=== PATIENT | female | born 1940 | race Caucasian/White ===

== ENCOUNTER 2020-09-06 13:24 | Inpatient (IN) ==
[2020-09-06] MEDS ORDERED: Furosemide 40 MG/4 ML VIAL IVP ONE (13:40)
[2020-09-06 14:16] LABS: Eosinophils % 5.6 %; Hemoglobin 11.2 g/dL (11.5-15.4); Mean Corpuscular Volume 90.3 fL (83.0-100.0); Red Cell Distribution Width 14.8 % (11.5-14.5)
[2020-09-06 14:18] LABS: Basophils # 0.1 K/mcL (0.0-0.2); Basophils % 1.2 %; Eosinophils # 0.3 K/mcL (0.0-0.6); Hematocrit 35.4 % (35.3-44.9); Immature Granulocytes % 0.2 % (0-4); Immature Platelets 15.2 % (1.1-6.1); Lymphocytes # 1.3 K/mcL (0.6-4.6); Lymphocytes % 26.7 %; Mean Corpuscular HGB Conc 31.6 g/dL (31.6-35.5); Mean Corpuscular Hemoglobin 28.6 pg (28.0-33.3); Mean Platelet Volume 12.4 fL (9.4-12.4); Monocytes # 0.8 K/mcL (0.0-1.3); Monocytes % 17.1 %; Neutrophils # 2.4 K/mcL (1.6-8.9); Platelet Count 155 K/mcL (140-400); Red Blood Count 3.92 M/mcL (3.82-4.97); Segmented Neutrophils % 49.2 %; White Blood Count 4.9 K/mcL (4.3-11.1)
[2020-09-06 14:41] LABS: BUN/Creatinine Ratio 15 (6-26); Blood Urea Nitrogen 14 mg/dL (8-23); Calcium 9.3 mg/dL (8.6-10.3); Carbon Dioxide 33 mEq/L (23-29); Chloride 98 mEq/L (98-107); Glucose 119 mg/dL (70-105); Osmolality,Calculated 286 (280-300); Potassium 3.6 mEq/L (3.5-5.1); Sodium 137 mEq/L (136-145); Troponin I < 0.03 ng/mL (< 0.04); eGFR For African Americans > 60 (> 60); eGFR For Non-African Americans 58 (> 60)
[2020-09-06 14:51] LABS: Activated Partial Thrombo Time 27.8 Seconds (26.0-36.0)
[2020-09-06] MEDS ORDERED: Naloxone 0.4 MG/ML INJ IVP PRN (16:59)
[2020-09-06] MEDS ORDERED: Melatonin 3 MG TABLET PO PRN ×2 (16:59→17:09)
[2020-09-06] MEDS ORDERED: Ondansetron 4 MG/2 ML VIAL IVP PRN (16:59)
[2020-09-06] MEDS ORDERED: D5% in Water 1,000 ML IVC PRN (17:10)
[2020-09-06] MEDS ORDERED: *HR* Dextrose 50 % in Water (Vial) 50 ML VIAL IVP PRN (17:10)
[2020-09-06] MEDS ORDERED: Dextrose Gel 15 GM/37.5 ML TUBE PO PRN ×2 (17:10)
[2020-09-06] MEDS ORDERED: Perflutren Lipid Microsphere 1.3 ML in 0.9 % Sodium Chloride 8.7 ML IVP PRN (17:10)
[2020-09-06] MEDS ORDERED: Ipratropium/Albuterol Neb 3 ML IH PRN (17:57)
[2020-09-06 20:06] LABS: Estimated Average Glucose 160 mg/dl; Hemoglobin A1C 7.2 %
[2020-09-06] MEDS: Pregabalin 75 MG CAPSULE PO SCH (20:08)
[2020-09-06] MEDS: Insulin DETEMIR 100 UNIT/ML X5UNITS SUBQ SCH (20:10)
[2020-09-06] MEDS: *HR* Enoxaparin 40 MG/0.4 ML SYRINGE SQ SCH (20:10)
[2020-09-06] MEDS: Insulin LISPRO 300 UNITS/3 ML VIAL SUBQ SCH (20:12)
[2020-09-06] MEDS: predniSONE 20 MG TABLET PO SCH (20:22)
[2020-09-06] MEDS: Albumin 25% 25gram/100mL 25 GM/100 ML IV.SOLN IVPB SCH (20:22)
[2020-09-06] MEDS: Furosemide 40 MG/4 ML VIAL IVP SCH (22:04)
[2020-09-07 01:36] LABS: Immature Granulocytes % 0.2 % (0-4); Red Cell Distribution Width 14.8 % (11.5-14.5)
[2020-09-07 01:38] LABS: Basophils # 0.1 K/mcL (0.0-0.2); Eosinophils # 0.2 K/mcL (0.0-0.6); Eosinophils % 3.8 %; Hematocrit 33.8 % (35.3-44.9); Hemoglobin 10.7 g/dL (11.5-15.4); Immature Platelets 12.4 % (1.1-6.1); Lymphocytes # 0.9 K/mcL (0.6-4.6); Lymphocytes % 18.7 %; Mean Corpuscular HGB Conc 31.7 g/dL (31.6-35.5); Mean Corpuscular Hemoglobin 28.5 pg (28.0-33.3); Mean Corpuscular Volume 89.9 fL (83.0-100.0); Mean Platelet Volume 12.9 fL (9.4-12.4); Monocytes # 0.5 K/mcL (0.0-1.3); Monocytes % 9.6 %; Neutrophils # 3.2 K/mcL (1.6-8.9); Platelet Count 137 K/mcL (140-400); Red Blood Count 3.76 M/mcL (3.82-4.97); Segmented Neutrophils % 66.7 %; White Blood Count 4.8 K/mcL (4.3-11.1)
[2020-09-07 01:46] LABS: INR 1.2; Prothrombin Time 13.5 Seconds (9.4-12.1)
[2020-09-07 01:57] LABS: Alanine Aminotransferase 11 Units/L (7-52); Albumin 3.7 g/dL (3.5-5.7); Albumin/Globulin Ratio 1.1 (1.1-2.2); Alkaline Phosphatase 123 Units/L (34-104); Aspartate Amino Transferase 35 Units/L (13-39); BUN/Creatinine Ratio 16 (6-26); Blood Urea Nitrogen 13 mg/dL (8-23); Carbon Dioxide 29 mEq/L (23-29); Chloride 100 mEq/L (98-107); Cholesterol 139 mg/dL (< 200); Globulin 3.4 g/dL (2.4-3.5); Glucose 157 mg/dL (70-105); HDL Cholesterol 35 mg/dL (40-59); LDL Cholesterol,Calculated 81 mg/dL (< 100); Magnesium 1.9 mg/dL (1.6-2.6); Osmolality,Calculated 289 (280-300); Phosphorous 2.6 mg/dL (2.7-4.5); Potassium 3.3 mEq/L (3.5-5.1); Sodium 138 mEq/L (136-145); Total Protein 7.1 g/dL (6.4-8.9); Triglycerides 113 mg/dL (< 150); eGFR For African Americans > 60 (> 60); eGFR For Non-African Americans > 60 (> 60)
[2020-09-07 01:58] LABS: % Iron Saturation 11 % (15-50); Iron 40 mcg/dL (50-170); Transferrin 256 mg/dL (203-362)
[2020-09-07 02:16] LABS: Ferritin 24 ng/mL (10-120)
[2020-09-07 02:21] LABS: Folate 8.5 ng/mL (3.0-16.0)
[2020-09-07] MEDS: Albumin 25% 25gram/100mL 25 GM/100 ML IV.SOLN IVPB SCH ×4 (04:14→20:25)
[2020-09-07] MEDS: *HR* Enoxaparin 40 MG/0.4 ML SYRINGE SQ SCH ×2 (05:49→17:28)
[2020-09-07] MEDS: Furosemide 40 MG/4 ML VIAL IVP SCH ×3 (05:49→22:13)
[2020-09-07] MEDS ORDERED: Iron Sucrose Complex 400 MG in 0.9 % Sodium Chloride 250 ML IVPB ONE (07:09)
[2020-09-07] MEDS ORDERED: Isovue-370 500 ML BOTTLE IVP ONE (07:10)
[2020-09-07] MEDS: Cyanocobalamin (B-12) 1,000 MCG TABLET PO SCH (09:03)
[2020-09-07] MEDS: allopurinoL 100 MG TABLET PO SCH (09:04)
[2020-09-07] MEDS: Aspirin 81 MG TAB.CHEW PO SCH (09:04)
[2020-09-07] MEDS: Multivit/Ca/Min/Fe/FA 1 TAB TABLET PO SCH (09:04)
[2020-09-07] MEDS: Cholecalciferol (D-3) 1,000 UNIT (25MCG) TABLET PO SCH (09:04)
[2020-09-07] MEDS: predniSONE 20 MG TABLET PO SCH (09:04)
[2020-09-07] MEDS: Pregabalin 75 MG CAPSULE PO SCH ×3 (09:04→20:23)
[2020-09-07] MEDS: FLUoxetine 20 MG CAPSULE PO SCH (09:04)
[2020-09-07] MEDS: Magnesium Oxide 400 MG TABLET PO SCH (09:04)
[2020-09-07] MEDS: Insulin LISPRO 300 UNITS/3 ML VIAL SUBQ SCH ×7 (09:07→20:25)
[2020-09-07] MEDS: Nystatin POWDER 30 GM BOTTLE TP SCH ×2 (12:26→20:24)
[2020-09-07] MEDS: *HR* Acetylcysteine 20% 600 MG/3 ML ORAL SYRINGE PO SCH (12:26)
[2020-09-07 14:37] LABS: Carcinoembryonic Antigen 14.8 ng/mL (Less than 5.0)
[2020-09-07 18:15] LABS: Bacteria,Urine Few per hpf (None-Few); Bilirubin,Urine Negative (Negative); Blood,Urine Negative (Negative); Clarity,Urine Clear (Clear); Color,Urine Light-Yellow (Yellow); Glucose,Urine (UA) Normal (Normal); Ketones,Urine Negative (Negative); Leukocyte Esterase,Urine Small (Negative); Mucus,Urine Few per lpf (None-Few); Nitrite,Urine Negative (Negative); Protein,Urine Negative (Neg-Trace); Specific Gravity,Urine 1.028 (1.010-1.025); Squamous Epithelial Cell,Urine Few per hpf (None-Few); Urobilinogen,Urine Normal (Normal)
[2020-09-07] MEDS: *HR* HYDROcodone/Acet 5/325 mg TABLET PO PRN (20:23)
[2020-09-07] MEDS: Insulin DETEMIR 100 UNIT/ML X5UNITS SUBQ SCH (20:26)
[2020-09-08 03:03] LABS: Hematocrit 32.6 % (35.3-44.9); Hemoglobin 10.2 g/dL (11.5-15.4); Immature Platelets 14.9 % (1.1-6.1); Mean Corpuscular HGB Conc 31.3 g/dL (31.6-35.5); Mean Corpuscular Hemoglobin 28.6 pg (28.0-33.3); Mean Corpuscular Volume 91.3 fL (83.0-100.0); Mean Platelet Volume 13.3 fL (9.4-12.4); Red Blood Count 3.57 M/mcL (3.82-4.97); Red Cell Distribution Width 14.7 % (11.5-14.5); White Blood Count 5.3 K/mcL (4.3-11.1)
[2020-09-08 03:14] LABS: BUN/Creatinine Ratio 20 (6-26); Blood Urea Nitrogen 18 mg/dL (8-23); Calcium 9.5 mg/dL (8.6-10.3); Carbon Dioxide 31 mEq/L (23-29); Chloride 100 mEq/L (98-107); Glucose 116 mg/dL (70-105); Magnesium 2.2 mg/dL (1.6-2.6); Osmolality,Calculated 291 (280-300); Phosphorous 2.9 mg/dL (2.7-4.5); Potassium 3.3 mEq/L (3.5-5.1); Sodium 139 mEq/L (136-145); eGFR For African Americans > 60 (> 60); eGFR For Non-African Americans 59 (> 60)
[2020-09-08] MEDS: *HR* HYDROcodone/Acet 5/325 mg TABLET PO PRN ×2 (03:45→08:06)
[2020-09-08] MEDS: Albumin 25% 25gram/100mL 25 GM/100 ML IV.SOLN IVPB SCH ×3 (05:49→21:02)
[2020-09-08] MEDS: *HR* Enoxaparin 40 MG/0.4 ML SYRINGE SQ SCH ×2 (05:50→17:34)
[2020-09-08] MEDS: Furosemide 40 MG/4 ML VIAL IVP SCH ×4 (07:39→23:02)
[2020-09-08] MEDS: allopurinoL 100 MG TABLET PO SCH (08:02)
[2020-09-08] MEDS: Cyanocobalamin (B-12) 1,000 MCG TABLET PO SCH (08:02)
[2020-09-08] MEDS: Multivit/Ca/Min/Fe/FA 1 TAB TABLET PO SCH (08:03)
[2020-09-08] MEDS: predniSONE 20 MG TABLET PO SCH (08:03)
[2020-09-08] MEDS: Aspirin 81 MG TAB.CHEW PO SCH (08:03)
[2020-09-08] MEDS: Magnesium Oxide 400 MG TABLET PO SCH (08:03)
[2020-09-08] MEDS: Cholecalciferol (D-3) 1,000 UNIT (25MCG) TABLET PO SCH (08:03)
[2020-09-08] MEDS: Pregabalin 75 MG CAPSULE PO SCH ×3 (08:03→21:00)
[2020-09-08] MEDS: *HR* Acetylcysteine 20% 600 MG/3 ML ORAL SYRINGE PO SCH (08:04)
[2020-09-08] MEDS: Insulin LISPRO 300 UNITS/3 ML VIAL SUBQ SCH ×7 (08:04→21:01)
[2020-09-08] MEDS: FLUoxetine 20 MG CAPSULE PO SCH (08:09)
[2020-09-08] MEDS: Nystatin POWDER 30 GM BOTTLE TP SCH ×2 (09:44→21:01)
[2020-09-08] MEDS: Acetaminophen 325 MG TABLET PO PRN (11:12)
[2020-09-08] MEDS: Insulin DETEMIR 100 UNIT/ML X5UNITS SUBQ SCH (21:01)
[2020-09-09] MEDS: *HR* HYDROcodone/Acet 5/325 mg TABLET PO PRN (04:40)
[2020-09-09 05:01] LABS: Hemoglobin 10.6 g/dL (11.5-15.4); Mean Platelet Volume 13.4 fL (9.4-12.4); Red Cell Distribution Width 15.2 % (11.5-14.5)
[2020-09-09 05:03] LABS: Hematocrit 34.3 % (35.3-44.9); Immature Platelets 13.6 % (1.1-6.1); Mean Corpuscular HGB Conc 30.9 g/dL (31.6-35.5); Mean Corpuscular Volume 93.7 fL (83.0-100.0); Red Blood Count 3.66 M/mcL (3.82-4.97); White Blood Count 6.7 K/mcL (4.3-11.1)
[2020-09-09 05:30] LABS: BUN/Creatinine Ratio 22 (6-26); Blood Urea Nitrogen 16 mg/dL (8-23); Calcium 9.9 mg/dL (8.6-10.3); Carbon Dioxide 31 mEq/L (23-29); Chloride 101 mEq/L (98-107); Glucose 70 mg/dL (70-105); Osmolality,Calculated 292 (280-300); Phosphorous 2.4 mg/dL (2.7-4.5); Potassium 3.3 mEq/L (3.5-5.1); Sodium 141 mEq/L (136-145); eGFR For African Americans > 60 (> 60); eGFR For Non-African Americans > 60 (> 60)
[2020-09-09] MEDS: *HR* Enoxaparin 40 MG/0.4 ML SYRINGE SQ SCH ×2 (06:15→16:19)
[2020-09-09] MEDS: Albumin 25% 25gram/100mL 25 GM/100 ML IV.SOLN IVPB SCH ×3 (06:15→22:50)
[2020-09-09] MEDS ORDERED: *HR* HYDROcodone/Acet 5/325 mg TABLET PO PRN (07:32)
[2020-09-09] MEDS: Insulin LISPRO 300 UNITS/3 ML VIAL SUBQ SCH ×7 (09:20→21:03)
[2020-09-09] MEDS: Multivit/Ca/Min/Fe/FA 1 TAB TABLET PO SCH (09:29)
[2020-09-09] MEDS: Magnesium Oxide 400 MG TABLET PO SCH (09:30)
[2020-09-09] MEDS: Furosemide 40 MG/4 ML VIAL IVP SCH ×2 (09:30→16:17)
[2020-09-09] MEDS: Aspirin 81 MG TAB.CHEW PO SCH (09:30)
[2020-09-09] MEDS: FLUoxetine 20 MG CAPSULE PO SCH (09:30)
[2020-09-09] MEDS: Pregabalin 75 MG CAPSULE PO SCH ×3 (09:30→21:11)
[2020-09-09] MEDS: Cholecalciferol (D-3) 1,000 UNIT (25MCG) TABLET PO SCH (09:30)
[2020-09-09] MEDS: allopurinoL 100 MG TABLET PO SCH (09:30)
[2020-09-09] MEDS: *HR* Acetylcysteine 20% 600 MG/3 ML ORAL SYRINGE PO SCH (09:31)
[2020-09-09] MEDS: Cyanocobalamin (B-12) 1,000 MCG TABLET PO SCH (09:31)
[2020-09-09] MEDS: Nystatin POWDER 30 GM BOTTLE TP SCH ×2 (09:31→21:07)
[2020-09-09] MEDS: Acetaminophen 325 MG TABLET PO PRN (18:48)
[2020-09-09] MEDS: Insulin DETEMIR 100 UNIT/ML X5UNITS SUBQ SCH (21:06)
[2020-09-10] MEDS: Furosemide 40 MG/4 ML VIAL IVP SCH ×3 (01:04→15:55)
[2020-09-10] MEDS: Albumin 25% 25gram/100mL 25 GM/100 ML IV.SOLN IVPB SCH ×2 (05:35→14:22)
[2020-09-10] MEDS: *HR* Enoxaparin 40 MG/0.4 ML SYRINGE SQ SCH (05:36)
[2020-09-10] MEDS: FLUoxetine 20 MG CAPSULE PO SCH (09:18)
[2020-09-10] MEDS: Insulin LISPRO 300 UNITS/3 ML VIAL SUBQ SCH ×6 (09:18→15:58)
[2020-09-10] MEDS: Cholecalciferol (D-3) 1,000 UNIT (25MCG) TABLET PO SCH (09:19)
[2020-09-10] MEDS: *HR* Acetylcysteine 20% 600 MG/3 ML ORAL SYRINGE PO SCH (09:19)
[2020-09-10] MEDS: allopurinoL 100 MG TABLET PO SCH (09:19)
[2020-09-10] MEDS: Pregabalin 75 MG CAPSULE PO SCH ×2 (09:19→14:21)
[2020-09-10] MEDS: Aspirin 81 MG TAB.CHEW PO SCH (09:19)
[2020-09-10] MEDS: Multivit/Ca/Min/Fe/FA 1 TAB TABLET PO SCH (09:19)
[2020-09-10] MEDS: Cyanocobalamin (B-12) 1,000 MCG TABLET PO SCH (09:20)
[2020-09-10] MEDS: Magnesium Oxide 400 MG TABLET PO SCH (09:20)
[2020-09-10] MEDS: Nystatin POWDER 30 GM BOTTLE TP SCH (09:27)
[2020-09-10 10:58] VITALS: BP 137/70
[2020-09-10] MEDS ORDERED: levoFLOXacin 750 MG TABLET PO SCH (13:00)
[2020-09-10 13:48] LABS: Mean Platelet Volume 13.2 fL (9.4-12.4)
[2020-09-10 13:49] LABS: Basophils # 0.1 K/mcL (0.0-0.2); Basophils % 1.1 %; Eosinophils # 0.1 K/mcL (0.0-0.6); Eosinophils % 2.2 %; Hematocrit 31.5 % (35.3-44.9); Hemoglobin 9.8 g/dL (11.5-15.4); Immature Granulocytes % 0.4 % (0-4); Immature Platelets 15.1 % (1.1-6.1); Lymphocytes # 1.2 K/mcL (0.6-4.6); Lymphocytes % 21.9 %; Mean Corpuscular HGB Conc 31.1 g/dL (31.6-35.5); Mean Corpuscular Hemoglobin 28.6 pg (28.0-33.3); Mean Corpuscular Volume 91.8 fL (83.0-100.0); Monocytes # 0.8 K/mcL (0.0-1.3); Monocytes % 14.6 %; Neutrophils # 3.2 K/mcL (1.6-8.9); Platelet Count 122 K/mcL (140-400); Red Blood Count 3.43 M/mcL (3.82-4.97); Red Cell Distribution Width 15.8 % (11.5-14.5); Segmented Neutrophils % 59.8 %; White Blood Count 5.3 K/mcL (4.3-11.1)
[2020-09-10 14:04] LABS: BUN/Creatinine Ratio 23 (6-26); Blood Urea Nitrogen 23 mg/dL (8-23); Calcium 9.9 mg/dL (8.6-10.3); Carbon Dioxide 31 mEq/L (23-29); Chloride 99 mEq/L (98-107); Glucose 147 mg/dL (70-105); Osmolality,Calculated 294 (280-300); Potassium 3.5 mEq/L (3.5-5.1); Sodium 139 mEq/L (136-145); eGFR For African Americans > 60 (> 60); eGFR For Non-African Americans 53 (> 60)
== END 2020-09-10 17:55 | disposition home health service (06) | DRG 291 ==
LOC: 2ANU 13:24 → EMEROOARM 13:24 → SUATTDRO 16:32 → 2ANU 17:30
PROVIDERS: ADMIT Internal Medicine; ATTEND Internal Medicine

== ENCOUNTER 2020-11-16 20:57 | Inpatient (IN) ==
[2020-11-16] MEDS ORDERED: Naloxone 0.4 MG/ML INJ IVP PRN (23:47)
[2020-11-16] MEDS ORDERED: Ondansetron 4 MG/2 ML VIAL IVP PRN (23:59)
[2020-11-16] MEDS ORDERED: Melatonin 3 MG TABLET PO PRN (23:59)
[2020-11-17] MEDS ORDERED: *HR* Heparin 5,000 UNIT/ML VIAL IVP PRN (00:03)
[2020-11-17] MEDS ORDERED: Potassium Chloride 40 MEQ, Lidocaine 1% 2 ML in 0.9 % Sodium Chloride 500 ML IVPB ONE (01:00)
[2020-11-17] MEDS: Heparin 25,000UNIT/250ML 1/2NS 25,000 UNIT/250 ML IV.SOLN IVC SCH ×4 (01:02→21:59)
[2020-11-17] MEDS: Acetaminophen 325 MG TABLET PO PRN (01:35)
[2020-11-17 06:16] LABS: Immature Granulocytes % 2.1 % (0-4); Red Cell Distribution Width 14.6 % (11.5-14.5)
[2020-11-17 06:18] LABS: Basophils % 0.2 %; Eosinophils # 0.1 K/mcL (0.0-0.6); Eosinophils % 0.3 %; Hematocrit 33.5 % (35.3-44.9); Hemoglobin 10.7 g/dL (11.5-15.4); Immature Platelets 14.3 % (1.1-6.1); Lymphocytes # 0.8 K/mcL (0.6-4.6); Lymphocytes % 4.9 %; Mean Corpuscular HGB Conc 31.9 g/dL (31.6-35.5); Mean Corpuscular Hemoglobin 29.2 pg (28.0-33.3); Mean Corpuscular Volume 91.3 fL (83.0-100.0); Mean Platelet Volume 13.8 fL (9.4-12.4); Monocytes # 1.4 K/mcL (0.0-1.3); Monocytes % 8.1 %; Neutrophils # 14.5 K/mcL (1.6-8.9); Platelet Count 135 K/mcL (140-400); Red Blood Count 3.67 M/mcL (3.82-4.97); Segmented Neutrophils % 84.4 %; White Blood Count 17.2 K/mcL (4.3-11.1)
[2020-11-17 06:19] LABS: INR 1.4; Prothrombin Time 15.6 Seconds (9.4-12.1)
[2020-11-17 06:21] LABS: Heparin anti-factor XA UFH 1.15 IU/mL (0.30-0.70)
[2020-11-17 06:48] LABS: Albumin 3.6 g/dL (3.5-5.7); Albumin/Globulin Ratio 1.2 (1.1-2.2); Bilirubin,Total 1.1 mg/dL (0.3-1.0); Magnesium 1.5 mg/dL (1.6-2.6); Phosphorous 2.4 mg/dL (2.7-4.5); Total Protein 6.6 g/dL (6.4-8.9); Troponin I 0.68 ng/mL (< 0.04)
[2020-11-17] MEDS ORDERED: Perflutren Lipid Microsphere 1.3 ML in 0.9 % Sodium Chloride 8.7 ML IVP PRN (06:59)
[2020-11-17] MEDS ORDERED: Magnesium Sulfate 1 GM/102 ML PIGGYBACK IVPB ONE (07:06)
[2020-11-17] MEDS: 0.9 % Sodium Chloride 1,000 ML IVC SCH ×2 (08:51→20:46)
[2020-11-17] MEDS: Vancomycin 1,750 MG/517.5 ML IV.SOLN IVPB SCH (08:51)
[2020-11-17] MEDS ORDERED: Furosemide 40 MG/4 ML VIAL IVP SCH (09:00)
[2020-11-17] MEDS ORDERED: Dextrose Gel 15 GM/37.5 ML TUBE PO PRN ×2 (14:29)
[2020-11-17] MEDS ORDERED: *HR* Dextrose 50 % in Water (Vial) 50 ML VIAL IVP PRN (14:29)
[2020-11-17] MEDS ORDERED: D5% in Water 1,000 ML IVC PRN (14:29)
[2020-11-17] MEDS ORDERED: Insulin DETEMIR 100 UNIT/ML X5UNITS SUBQ ONE (15:12)
[2020-11-17] MEDS: Insulin LISPRO 300 UNITS/3 ML VIAL SUBQ SCH (16:03)
[2020-11-17] MEDS: Piperacillin/Tazobactam 3.375 GM in 0.9 % Sodium Chloride Mini Bag 100 ML IVPB SCH ×2 (16:04→23:59)
[2020-11-17] MEDS ORDERED: Artificial Tears SOLN 15 ML BOTTLE BOTH EYES PRN (18:06)
[2020-11-18] MEDS ORDERED: Acetaminophen IV 1,000 MG/100 ML BAG IVPB ONE (05:34)
[2020-11-18 05:37] LABS: Basophils % 0.5 %
[2020-11-18 05:39] LABS: Basophils # 0.1 K/mcL (0.0-0.2); Eosinophils # 0.3 K/mcL (0.0-0.6); Hematocrit 33.8 % (35.3-44.9); Hemoglobin 10.6 g/dL (11.5-15.4); Immature Granulocytes % 0.6 % (0-4); Immature Platelets 14.5 % (1.1-6.1); Lymphocytes # 1.8 K/mcL (0.6-4.6); Lymphocytes % 13.6 %; Mean Corpuscular HGB Conc 31.4 g/dL (31.6-35.5); Mean Corpuscular Hemoglobin 28.5 pg (28.0-33.3); Mean Corpuscular Volume 90.9 fL (83.0-100.0); Mean Platelet Volume 12.9 fL (9.4-12.4); Monocytes # 1.1 K/mcL (0.0-1.3); Monocytes % 8.3 %; Neutrophils # 9.8 K/mcL (1.6-8.9); Platelet Count 140 K/mcL (140-400); Red Blood Count 3.72 M/mcL (3.82-4.97); Red Cell Distribution Width 14.6 % (11.5-14.5); White Blood Count 13.1 K/mcL (4.3-11.1)
[2020-11-18 05:58] LABS: Platelet Estimate Normal (Normal)
[2020-11-18 06:02] LABS: Albumin 3.6 g/dL (3.5-5.7); Albumin/Globulin Ratio 1.1 (1.1-2.2); Bilirubin,Total 0.9 mg/dL (0.3-1.0); Calcium 8.9 mg/dL (8.6-10.3); Globulin 3.2 g/dL (2.4-3.5); Potassium 3.5 mEq/L (3.5-5.1); Total Protein 6.8 g/dL (6.4-8.9)
[2020-11-18] MEDS: *HR* Heparin 5,000 UNIT/ML VIAL IVP PRN ×2 (07:00→14:42)
[2020-11-18] MEDS: Insulin LISPRO 300 UNITS/3 ML VIAL SUBQ SCH ×3 (07:12→17:37)
[2020-11-18] MEDS: Insulin DETEMIR 100 UNIT/ML X5UNITS SUBQ SCH ×3 (07:12→10:25)
[2020-11-18] MEDS ORDERED: *HR* HYDROcodone/Acet 7.5/325 mg TABLET PO PRN (07:33)
[2020-11-18] MEDS ORDERED: Fluticasone Propionate Nasal 50 MCG/SPRAY BOTTLE NS PRN (07:33)
[2020-11-18] MEDS: Vancomycin 1,750 MG/517.5 ML IV.SOLN IVPB SCH (07:44)
[2020-11-18] MEDS: Piperacillin/Tazobactam 3.375 GM in 0.9 % Sodium Chloride Mini Bag 100 ML IVPB SCH ×2 (07:45→17:04)
[2020-11-18] MEDS ORDERED: 0.9 % Sodium Chloride 1,000 ML IVC SCH (07:45)
[2020-11-18] MEDS: FLUoxetine 20 MG CAPSULE PO SCH (10:22)
[2020-11-18] MEDS: Cholecalciferol (D-3) 1,000 UNIT (25MCG) TABLET PO SCH (10:22)
[2020-11-18] MEDS: Lactobacillus 1 EACH CAP.SPRINK PO SCH ×2 (10:22→21:10)
[2020-11-18] MEDS: Aspirin Enteric Coated 81 MG Tablet PO SCH (10:22)
[2020-11-18] MEDS: allopurinoL 100 MG TABLET PO SCH (10:23)
[2020-11-18] MEDS: Magnesium Oxide 400 MG TABLET PO SCH (10:23)
[2020-11-18] MEDS: Cyanocobalamin (B-12) 1,000 MCG TABLET PO SCH (10:23)
[2020-11-18] MEDS: *HR* Acetylcysteine 20% 600 MG/3 ML ORAL SYRINGE PO SCH (11:13)
[2020-11-18 15:08] LABS: Sodium, Urine 11.6 mEq/L
[2020-11-18] MEDS ORDERED: *HR* HYDROcodone/Acet 7.5/325 mg TABLET PO ONE (17:06)
[2020-11-18] MEDS: PRAMIPEXOLE 1.5 MG PO SCH (17:53)
[2020-11-18] MEDS: *HR* HYDROcodone/Acet 7.5/325 mg TABLET PO PRN (22:37)
[2020-11-19] MEDS: Piperacillin/Tazobactam 3.375 GM in 0.9 % Sodium Chloride Mini Bag 100 ML IVPB SCH ×2 (00:15→08:35)
[2020-11-19] MEDS: Heparin 25,000UNIT/250ML 1/2NS 25,000 UNIT/250 ML IV.SOLN IVC SCH (02:07)
[2020-11-19 03:24] LABS: Platelet Count 137 K/mcL (140-400)
[2020-11-19 03:26] LABS: Basophils # 0.1 K/mcL (0.0-0.2); Basophils % 0.6 %; Eosinophils # 0.1 K/mcL (0.0-0.6); Eosinophils % 1.3 %; Hemoglobin 10.3 g/dL (11.5-15.4); Immature Granulocytes % 0.6 % (0-4); Immature Platelets 13.6 % (1.1-6.1); Lymphocytes # 1.2 K/mcL (0.6-4.6); Lymphocytes % 14.7 %; Mean Corpuscular HGB Conc 31.2 g/dL (31.6-35.5); Mean Corpuscular Hemoglobin 28.7 pg (28.0-33.3); Mean Corpuscular Volume 91.9 fL (83.0-100.0); Mean Platelet Volume 12.9 fL (9.4-12.4); Monocytes % 11.6 %; Red Blood Count 3.59 M/mcL (3.82-4.97); Segmented Neutrophils % 71.2 %; White Blood Count 8.4 K/mcL (4.3-11.1)
[2020-11-19 03:42] LABS: Albumin 3.5 g/dL (3.5-5.7); Albumin/Globulin Ratio 1.1 (1.1-2.2); Bilirubin,Total 0.9 mg/dL (0.3-1.0); Globulin 3.1 g/dL (2.4-3.5); Potassium 3.7 mEq/L (3.5-5.1); Total Protein 6.6 g/dL (6.4-8.9)
[2020-11-19 03:44] LABS: Magnesium 2.5 mg/dL (1.6-2.6); Phosphorous 3.3 mg/dL (2.7-4.5)
[2020-11-19] MEDS: Acetaminophen 325 MG TABLET PO PRN (04:46)
[2020-11-19] MEDS: *HR* HYDROcodone/Acet 7.5/325 mg TABLET PO PRN ×4 (05:22→20:12)
[2020-11-19] MEDS: Magnesium Oxide 400 MG TABLET PO SCH (08:27)
[2020-11-19] MEDS: Insulin DETEMIR 100 UNIT/ML X5UNITS SUBQ SCH (08:33)
[2020-11-19] MEDS: Cholecalciferol (D-3) 1,000 UNIT (25MCG) TABLET PO SCH (08:33)
[2020-11-19] MEDS: Aspirin Enteric Coated 81 MG Tablet PO SCH (08:34)
[2020-11-19] MEDS: FLUoxetine 20 MG CAPSULE PO SCH (08:34)
[2020-11-19] MEDS: Cyanocobalamin (B-12) 1,000 MCG TABLET PO SCH (08:34)
[2020-11-19] MEDS: allopurinoL 100 MG TABLET PO SCH (08:34)
[2020-11-19] MEDS: Insulin LISPRO 300 UNITS/3 ML VIAL SUBQ SCH ×3 (08:35→16:22)
[2020-11-19] MEDS: Lactobacillus 1 EACH CAP.SPRINK PO SCH ×2 (08:35→20:12)
[2020-11-19] MEDS: *HR* Acetylcysteine 20% 600 MG/3 ML ORAL SYRINGE PO SCH (08:37)
[2020-11-19 14:03] LABS: INR 1.1; Prothrombin Time 12.5 Seconds (9.4-12.1)
[2020-11-19] MEDS: PRAMIPEXOLE 1.5 MG PO SCH (16:24)
[2020-11-19] MEDS: cefTRIAXone 2,000 MG in Water for inj. (sterile) 20 ML IVP SCH (16:25)
[2020-11-19] MEDS ORDERED: *HR* Warfarin 5 MG TABLET PO ONE (18:00)
[2020-11-19] MEDS ORDERED: Warfarin perPT PO PRN (18:00)
[2020-11-20] MEDS: Heparin 25,000UNIT/250ML 1/2NS 25,000 UNIT/250 ML IV.SOLN IVC SCH ×2 (00:11→20:47)
[2020-11-20] MEDS: *HR* HYDROcodone/Acet 7.5/325 mg TABLET PO PRN ×6 (00:13→20:48)
[2020-11-20 05:02] LABS: Basophils # 0.1 K/mcL (0.0-0.2); Basophils % 1.1 %; Eosinophils # 0.2 K/mcL (0.0-0.6); Hematocrit 34.5 % (35.3-44.9); Hemoglobin 10.7 g/dL (11.5-15.4); Immature Granulocytes % 0.5 % (0-4); Lymphocytes # 1.4 K/mcL (0.6-4.6); Lymphocytes % 22.3 %; Mean Corpuscular Hemoglobin 28.8 pg (28.0-33.3); Mean Corpuscular Volume 92.7 fL (83.0-100.0); Mean Platelet Volume 12.5 fL (9.4-12.4); Monocytes # 0.8 K/mcL (0.0-1.3); Monocytes % 12.5 %; Neutrophils # 3.8 K/mcL (1.6-8.9); Platelet Count 141 K/mcL (140-400); Red Blood Count 3.72 M/mcL (3.82-4.97); Red Cell Distribution Width 14.9 % (11.5-14.5); Segmented Neutrophils % 60.6 %; White Blood Count 6.2 K/mcL (4.3-11.1)
[2020-11-20 05:15] LABS: Alanine Aminotransferase 10 Units/L (7-52); Albumin 3.6 g/dL (3.5-5.7); Albumin/Globulin Ratio 1.1 (1.1-2.2); Alkaline Phosphatase 100 Units/L (34-104); Aspartate Amino Transferase 28 Units/L (13-39); BUN/Creatinine Ratio 26 (6-26); Blood Urea Nitrogen 22 mg/dL (8-23); Calcium 9.7 mg/dL (8.6-10.3); Carbon Dioxide 28 mEq/L (23-29); Chloride 107 mEq/L (98-107); Globulin 3.4 g/dL (2.4-3.5); Glucose 118 mg/dL (70-105); Osmolality,Calculated 298 (280-300); Potassium 3.7 mEq/L (3.5-5.1); Sodium 142 mEq/L (136-145); eGFR For African Americans > 60 (> 60); eGFR For Non-African Americans > 60 (> 60)
[2020-11-20 05:16] LABS: INR 1.1; Prothrombin Time 12.2 Seconds (9.4-12.1)
[2020-11-20] MEDS: *HR* Heparin 5,000 UNIT/ML VIAL IVP PRN (06:53)
[2020-11-20] MEDS: Cholecalciferol (D-3) 1,000 UNIT (25MCG) TABLET PO SCH (08:53)
[2020-11-20] MEDS: Magnesium Oxide 400 MG TABLET PO SCH (08:53)
[2020-11-20] MEDS: FLUoxetine 20 MG CAPSULE PO SCH (08:53)
[2020-11-20] MEDS: *HR* Acetylcysteine 20% 600 MG/3 ML ORAL SYRINGE PO SCH (08:53)
[2020-11-20] MEDS: allopurinoL 100 MG TABLET PO SCH (08:53)
[2020-11-20] MEDS: Lactobacillus 1 EACH CAP.SPRINK PO SCH ×2 (08:53→20:48)
[2020-11-20] MEDS: Aspirin Enteric Coated 81 MG Tablet PO SCH (08:53)
[2020-11-20] MEDS: Insulin LISPRO 300 UNITS/3 ML VIAL SUBQ SCH ×3 (08:54→16:51)
[2020-11-20] MEDS: Cyanocobalamin (B-12) 1,000 MCG TABLET PO SCH (08:54)
[2020-11-20] MEDS: Insulin DETEMIR 100 UNIT/ML X5UNITS SUBQ SCH (08:55)
[2020-11-20] MEDS: Budesonide/Formoterol 160/4.5 1 PUFF INH IH SCH ×2 (10:15→20:51)
[2020-11-20] MEDS: Ipratropium/Albuterol Neb 3 ML IH SCH ×4 (10:15→20:51)
[2020-11-20] MEDS: MethylPREDNISolone 40 MG/ML VIAL IVP SCH (11:14)
[2020-11-20] MEDS: cefTRIAXone 2,000 MG in Water for inj. (sterile) 20 ML IVP SCH (16:52)
[2020-11-20] MEDS: Torsemide 20 MG TABLET PO SCH (16:53)
[2020-11-20] MEDS: PRAMIPEXOLE 1.5 MG PO SCH (16:53)
[2020-11-20] MEDS ORDERED: *HR* Warfarin 5 MG TABLET PO ONE (18:00)
[2020-11-20 21:09] LABS: Lambda Qnt Free Light Chains 28.93 mg/L (5.71-26.30)
[2020-11-21] MEDS: Ipratropium/Albuterol Neb 3 ML IH SCH ×7 (00:54→23:28)
[2020-11-21 03:21] LABS: Basophils % 0.4 %; Hematocrit 35.1 % (35.3-44.9); Hemoglobin 11.1 g/dL (11.5-15.4); Immature Granulocytes % 0.4 % (0-4); Lymphocytes # 0.7 K/mcL (0.6-4.6); Lymphocytes % 14.3 %; Mean Corpuscular HGB Conc 31.6 g/dL (31.6-35.5); Mean Corpuscular Hemoglobin 29.2 pg (28.0-33.3); Mean Corpuscular Volume 92.4 fL (83.0-100.0); Mean Platelet Volume 12.4 fL (9.4-12.4); Monocytes # 0.6 K/mcL (0.0-1.3); Monocytes % 11.2 %; Neutrophils # 3.6 K/mcL (1.6-8.9); Platelet Count 147 K/mcL (140-400); Red Cell Distribution Width 14.8 % (11.5-14.5); Segmented Neutrophils % 73.7 %; White Blood Count 4.9 K/mcL (4.3-11.1)
[2020-11-21 03:28] LABS: Heparin anti-factor XA UFH 0.42 IU/mL (0.30-0.70)
[2020-11-21 03:29] LABS: INR 1.1; Prothrombin Time 12.4 Seconds (9.4-12.1)
[2020-11-21 03:34] LABS: BUN/Creatinine Ratio 27 (6-26); Blood Urea Nitrogen 21 mg/dL (8-23); Carbon Dioxide 27 mEq/L (23-29); Chloride 106 mEq/L (98-107); Glucose 206 mg/dL (70-105); Magnesium 1.8 mg/dL (1.6-2.6); Osmolality,Calculated 303 (280-300); Phosphorous 2.3 mg/dL (2.7-4.5); Potassium 3.8 mEq/L (3.5-5.1); Sodium 142 mEq/L (136-145); eGFR For African Americans > 60 (> 60); eGFR For Non-African Americans > 60 (> 60)
[2020-11-21] MEDS: *HR* HYDROcodone/Acet 7.5/325 mg TABLET PO PRN ×5 (05:05→21:49)
[2020-11-21] MEDS: Budesonide/Formoterol 160/4.5 1 PUFF INH IH SCH ×2 (07:42→19:53)
[2020-11-21] MEDS: MethylPREDNISolone 40 MG/ML VIAL IVP SCH (09:05)
[2020-11-21] MEDS: Cyanocobalamin (B-12) 1,000 MCG TABLET PO SCH (09:05)
[2020-11-21] MEDS: Cholecalciferol (D-3) 1,000 UNIT (25MCG) TABLET PO SCH (09:05)
[2020-11-21] MEDS: Aspirin Enteric Coated 81 MG Tablet PO SCH (09:05)
[2020-11-21] MEDS: *HR* Acetylcysteine 20% 600 MG/3 ML ORAL SYRINGE PO SCH (09:06)
[2020-11-21] MEDS: Magnesium Oxide 400 MG TABLET PO SCH (09:06)
[2020-11-21] MEDS: Torsemide 20 MG TABLET PO SCH ×2 (09:06→17:19)
[2020-11-21] MEDS: FLUoxetine 20 MG CAPSULE PO SCH (09:06)
[2020-11-21] MEDS: allopurinoL 100 MG TABLET PO SCH (09:07)
[2020-11-21] MEDS: Lactobacillus 1 EACH CAP.SPRINK PO SCH ×2 (09:07→20:23)
[2020-11-21] MEDS: Insulin LISPRO 300 UNITS/3 ML VIAL SUBQ SCH ×3 (09:07→16:16)
[2020-11-21] MEDS: Insulin DETEMIR 100 UNIT/ML X5UNITS SUBQ SCH (09:08)
[2020-11-21 09:45] LABS: Kappa Qnt Free Light Chains 42.05 mg/L (3.30-19.40)
[2020-11-21 09:49] LABS: ANA IgG by ELISA NONE DETECTED (None Detected)
[2020-11-21] MEDS: cefTRIAXone 2,000 MG in Water for inj. (sterile) 20 ML IVP SCH (17:20)
[2020-11-21] MEDS: PRAMIPEXOLE 1.5 MG PO SCH (17:21)
[2020-11-21] MEDS ORDERED: *HR* Warfarin 7.5 MG TABLET PO ONE (18:00)
[2020-11-21] MEDS: Heparin 25,000UNIT/250ML 1/2NS 25,000 UNIT/250 ML IV.SOLN IVC SCH (18:21)
[2020-11-22] MEDS: *HR* HYDROcodone/Acet 7.5/325 mg TABLET PO PRN ×5 (02:58→21:29)
[2020-11-22 03:17] LABS: Alpha 2 Globulin (PEP) 0.81 g/dL (0.48-1.05); Beta Globulin (PEP) 0.83 g/dL (0.48-1.10)
[2020-11-22] MEDS: Ipratropium/Albuterol Neb 3 ML IH SCH ×6 (03:51→23:20)
[2020-11-22 04:27] LABS: Heparin anti-factor XA UFH 0.47 IU/mL (0.30-0.70); INR 1.2; Prothrombin Time 13.9 Seconds (9.4-12.1)
[2020-11-22 04:57] LABS: Basophils % 0.4 %; Eosinophils % 0.1 %; Hemoglobin 11.3 g/dL (11.5-15.4); Immature Granulocytes % 0.9 % (0-4); Lymphocytes # 1.2 K/mcL (0.6-4.6); Lymphocytes % 17.4 %; Mean Corpuscular HGB Conc 32.3 g/dL (31.6-35.5); Mean Corpuscular Hemoglobin 29.6 pg (28.0-33.3); Mean Corpuscular Volume 91.6 fL (83.0-100.0); Mean Platelet Volume 12.8 fL (9.4-12.4); Monocytes # 0.8 K/mcL (0.0-1.3); Monocytes % 11.3 %; Neutrophils # 4.7 K/mcL (1.6-8.9); Platelet Count 172 K/mcL (140-400); Red Blood Count 3.82 M/mcL (3.82-4.97); Red Cell Distribution Width 14.6 % (11.5-14.5); Segmented Neutrophils % 69.9 %; White Blood Count 6.8 K/mcL (4.3-11.1)
[2020-11-22 05:16] LABS: BUN/Creatinine Ratio 30 (6-26); Blood Urea Nitrogen 24 mg/dL (8-23); Calcium 10.2 mg/dL (8.6-10.3); Carbon Dioxide 34 mEq/L (23-29); Chloride 99 mEq/L (98-107); Glucose 163 mg/dL (70-105); Magnesium 1.4 mg/dL (1.6-2.6); Osmolality,Calculated 298 (280-300); Phosphorous 2.4 mg/dL (2.7-4.5); Potassium 3.9 mEq/L (3.5-5.1); Sodium 140 mEq/L (136-145); eGFR For African Americans > 60 (> 60); eGFR For Non-African Americans > 60 (> 60)
[2020-11-22] MEDS: Budesonide/Formoterol 160/4.5 1 PUFF INH IH SCH ×2 (07:35→19:51)
[2020-11-22] MEDS: Lactobacillus 1 EACH CAP.SPRINK PO SCH ×2 (08:23→21:29)
[2020-11-22] MEDS: allopurinoL 100 MG TABLET PO SCH (08:23)
[2020-11-22] MEDS: FLUoxetine 20 MG CAPSULE PO SCH (08:23)
[2020-11-22] MEDS: Aspirin Enteric Coated 81 MG Tablet PO SCH (08:23)
[2020-11-22] MEDS: Cyanocobalamin (B-12) 1,000 MCG TABLET PO SCH (08:23)
[2020-11-22] MEDS: Magnesium Oxide 400 MG TABLET PO SCH (08:23)
[2020-11-22] MEDS: Torsemide 20 MG TABLET PO SCH ×2 (08:23→17:41)
[2020-11-22] MEDS: Cholecalciferol (D-3) 1,000 UNIT (25MCG) TABLET PO SCH (08:24)
[2020-11-22] MEDS: *HR* Acetylcysteine 20% 600 MG/3 ML ORAL SYRINGE PO SCH (08:27)
[2020-11-22] MEDS: Insulin LISPRO 300 UNITS/3 ML VIAL SUBQ SCH ×3 (08:30→17:46)
[2020-11-22] MEDS: Insulin DETEMIR 100 UNIT/ML X5UNITS SUBQ SCH (08:31)
[2020-11-22 09:50] LABS: IFE Reflexed NOT DONE
[2020-11-22] MEDS: predniSONE 20 MG TABLET PO SCH (10:28)
[2020-11-22] MEDS: Heparin 25,000UNIT/250ML 1/2NS 25,000 UNIT/250 ML IV.SOLN IVC SCH (10:50)
[2020-11-22] MEDS: cefTRIAXone 2,000 MG in Water for inj. (sterile) 20 ML IVP SCH (17:40)
[2020-11-22] MEDS: PRAMIPEXOLE 1.5 MG PO SCH (17:53)
[2020-11-22] MEDS ORDERED: *HR* Warfarin 7.5 MG TABLET PO ONE (18:00)
[2020-11-23] MEDS: Heparin 25,000UNIT/250ML 1/2NS 25,000 UNIT/250 ML IV.SOLN IVC SCH ×4 (03:13→19:27)
[2020-11-23] MEDS: *HR* HYDROcodone/Acet 7.5/325 mg TABLET PO PRN ×2 (03:24→08:05)
[2020-11-23] MEDS: Ipratropium/Albuterol Neb 3 ML IH SCH ×6 (03:34→23:44)
[2020-11-23 03:42] LABS: Basophils % 0.7 %; Hematocrit 33.9 % (35.3-44.9); Hemoglobin 11.2 g/dL (11.5-15.4); Immature Granulocytes % 1.4 % (0-4); Lymphocytes # 1.3 K/mcL (0.6-4.6); Lymphocytes % 22.5 %; Mean Corpuscular Hemoglobin 29.6 pg (28.0-33.3); Mean Corpuscular Volume 89.4 fL (83.0-100.0); Mean Platelet Volume 12.1 fL (9.4-12.4); Monocytes # 0.7 K/mcL (0.0-1.3); Monocytes % 11.8 %; Neutrophils # 3.7 K/mcL (1.6-8.9); Platelet Count 179 K/mcL (140-400); Red Blood Count 3.79 M/mcL (3.82-4.97); Red Cell Distribution Width 14.4 % (11.5-14.5); Segmented Neutrophils % 63.6 %; White Blood Count 5.8 K/mcL (4.3-11.1)
[2020-11-23 03:47] LABS: INR 1.4; Prothrombin Time 15.7 Seconds (9.4-12.1)
[2020-11-23 03:48] LABS: Heparin anti-factor XA UFH 0.53 IU/mL (0.30-0.70)
[2020-11-23 04:05] LABS: BUN/Creatinine Ratio 30 (6-26); Blood Urea Nitrogen 22 mg/dL (8-23); Calcium 9.9 mg/dL (8.6-10.3); Carbon Dioxide 34 mEq/L (23-29); Chloride 96 mEq/L (98-107); Glucose 178 mg/dL (70-105); Magnesium 1.4 mg/dL (1.6-2.6); Osmolality,Calculated 298 (280-300); Phosphorous 2.8 mg/dL (2.7-4.5); Potassium 3.8 mEq/L (3.5-5.1); Sodium 140 mEq/L (136-145); eGFR For African Americans > 60 (> 60); eGFR For Non-African Americans > 60 (> 60)
[2020-11-23] MEDS: allopurinoL 100 MG TABLET PO SCH (08:04)
[2020-11-23] MEDS: Cyanocobalamin (B-12) 1,000 MCG TABLET PO SCH (08:04)
[2020-11-23] MEDS: predniSONE 20 MG TABLET PO SCH (08:04)
[2020-11-23] MEDS: Torsemide 20 MG TABLET PO SCH ×2 (08:04→17:39)
[2020-11-23] MEDS: Lactobacillus 1 EACH CAP.SPRINK PO SCH ×2 (08:04→21:04)
[2020-11-23] MEDS: Aspirin Enteric Coated 81 MG Tablet PO SCH (08:05)
[2020-11-23] MEDS: Cholecalciferol (D-3) 1,000 UNIT (25MCG) TABLET PO SCH (08:05)
[2020-11-23] MEDS: Magnesium Oxide 400 MG TABLET PO SCH (08:05)
[2020-11-23] MEDS: FLUoxetine 20 MG CAPSULE PO SCH (08:07)
[2020-11-23] MEDS: *HR* Acetylcysteine 20% 600 MG/3 ML ORAL SYRINGE PO SCH (08:08)
[2020-11-23] MEDS: Insulin LISPRO 300 UNITS/3 ML VIAL SUBQ SCH ×3 (08:12→16:28)
[2020-11-23] MEDS: Insulin DETEMIR 100 UNIT/ML X5UNITS SUBQ SCH (08:12)
[2020-11-23] MEDS: Budesonide/Formoterol 160/4.5 1 PUFF INH IH SCH ×2 (11:27→19:46)
[2020-11-23] MEDS: *HR* HYDROcodone/Acet 7.5/325 mg TABLET PO SCH ×3 (12:35→21:03)
[2020-11-23] MEDS: DiphenhydraMINE CREAM 28.4 GM TUBE TP PRN (12:36)
[2020-11-23] MEDS: cefTRIAXone 2,000 MG in Water for inj. (sterile) 20 ML IVP SCH (16:28)
[2020-11-23] MEDS: PRAMIPEXOLE 1.5 MG PO SCH (17:39)
[2020-11-23] MEDS ORDERED: *HR* Warfarin 7.5 MG TABLET PO ONE (18:00)
[2020-11-24] MEDS: *HR* HYDROcodone/Acet 7.5/325 mg TABLET PO SCH ×7 (00:28→23:37)
[2020-11-24 03:00] LABS: Basophils # 0.1 K/mcL (0.0-0.2); Basophils % 0.9 %; Eosinophils # 0.1 K/mcL (0.0-0.6); Eosinophils % 0.9 %; Hematocrit 33.8 % (35.3-44.9); Hemoglobin 10.8 g/dL (11.5-15.4); Immature Granulocytes % 0.9 % (0-4); Lymphocytes # 1.2 K/mcL (0.6-4.6); Mean Corpuscular Hemoglobin 28.6 pg (28.0-33.3); Mean Corpuscular Volume 89.4 fL (83.0-100.0); Mean Platelet Volume 11.8 fL (9.4-12.4); Monocytes # 0.6 K/mcL (0.0-1.3); Monocytes % 11.3 %; Neutrophils # 3.6 K/mcL (1.6-8.9); Platelet Count 178 K/mcL (140-400); Red Blood Count 3.78 M/mcL (3.82-4.97); Red Cell Distribution Width 14.2 % (11.5-14.5); White Blood Count 5.6 K/mcL (4.3-11.1)
[2020-11-24 03:16] LABS: INR 1.8; Prothrombin Time 20.2 Seconds (9.4-12.1)
[2020-11-24 03:20] LABS: BUN/Creatinine Ratio 32 (6-26); Blood Urea Nitrogen 21 mg/dL (8-23); Calcium 9.4 mg/dL (8.6-10.3); Carbon Dioxide 35 mEq/L (23-29); Chloride 93 mEq/L (98-107); Glucose 151 mg/dL (70-105); Magnesium 1.7 mg/dL (1.6-2.6); Osmolality,Calculated 290 (280-300); Potassium 3.4 mEq/L (3.5-5.1); Sodium 137 mEq/L (136-145); eGFR For African Americans > 60 (> 60); eGFR For Non-African Americans > 60 (> 60)
[2020-11-24] MEDS: Ipratropium/Albuterol Neb 3 ML IH SCH ×5 (03:32→20:10)
[2020-11-24] MEDS: Insulin LISPRO 300 UNITS/3 ML VIAL SUBQ SCH ×3 (09:43→17:43)
[2020-11-24] MEDS: FLUoxetine 20 MG CAPSULE PO SCH (10:14)
[2020-11-24] MEDS: *HR* Acetylcysteine 20% 600 MG/3 ML ORAL SYRINGE PO SCH (10:14)
[2020-11-24] MEDS: Cyanocobalamin (B-12) 1,000 MCG TABLET PO SCH (10:15)
[2020-11-24] MEDS: Torsemide 20 MG TABLET PO SCH ×2 (10:15→17:44)
[2020-11-24] MEDS: Aspirin Enteric Coated 81 MG Tablet PO SCH (10:16)
[2020-11-24] MEDS: predniSONE 20 MG TABLET PO SCH (10:16)
[2020-11-24] MEDS: allopurinoL 100 MG TABLET PO SCH (10:16)
[2020-11-24] MEDS: Cholecalciferol (D-3) 1,000 UNIT (25MCG) TABLET PO SCH (10:16)
[2020-11-24] MEDS: Lactobacillus 1 EACH CAP.SPRINK PO SCH ×2 (10:16→19:50)
[2020-11-24] MEDS: Magnesium Oxide 400 MG TABLET PO SCH (10:16)
[2020-11-24] MEDS: Insulin DETEMIR 100 UNIT/ML X5UNITS SUBQ SCH (10:22)
[2020-11-24] MEDS: Budesonide/Formoterol 160/4.5 1 PUFF INH IH SCH ×2 (11:28→20:10)
[2020-11-24] MEDS: Heparin 25,000UNIT/250ML 1/2NS 25,000 UNIT/250 ML IV.SOLN IVC SCH (12:17)
[2020-11-24] MEDS: cefTRIAXone 2,000 MG in Water for inj. (sterile) 20 ML IVP SCH (16:06)
[2020-11-24] MEDS: PRAMIPEXOLE 1.5 MG PO SCH (17:43)
[2020-11-24] MEDS ORDERED: *HR* Warfarin 7.5 MG TABLET PO ONE (18:00)
[2020-11-25] MEDS: Ipratropium/Albuterol Neb 3 ML IH SCH ×6 (00:11→20:28)
[2020-11-25] MEDS: *HR* HYDROcodone/Acet 7.5/325 mg TABLET PO SCH ×5 (03:49→20:07)
[2020-11-25 03:51] LABS: Basophils % 0.5 %; Hematocrit 35.2 % (35.3-44.9); Hemoglobin 11.1 g/dL (11.5-15.4); Immature Granulocytes % 0.7 % (0-4); Lymphocytes # 0.8 K/mcL (0.6-4.6); Lymphocytes % 15.1 %; Mean Corpuscular HGB Conc 31.5 g/dL (31.6-35.5); Mean Corpuscular Hemoglobin 28.5 pg (28.0-33.3); Mean Corpuscular Volume 90.3 fL (83.0-100.0); Mean Platelet Volume 11.9 fL (9.4-12.4); Monocytes # 0.5 K/mcL (0.0-1.3); Monocytes % 8.4 %; Neutrophils # 4.2 K/mcL (1.6-8.9); Platelet Count 204 K/mcL (140-400); Red Cell Distribution Width 14.3 % (11.5-14.5); Segmented Neutrophils % 75.3 %; White Blood Count 5.6 K/mcL (4.3-11.1)
[2020-11-25 04:01] LABS: INR 2.1; Prothrombin Time 24.1 Seconds (9.4-12.1)
[2020-11-25 04:11] LABS: BUN/Creatinine Ratio 25 (6-26); Blood Urea Nitrogen 20 mg/dL (8-23); Calcium 9.7 mg/dL (8.6-10.3); Carbon Dioxide 40 mEq/L (23-29); Chloride 93 mEq/L (98-107); Glucose 195 mg/dL (70-105); Magnesium 1.8 mg/dL (1.6-2.6); Osmolality,Calculated 296 (280-300); Phosphorous 3.2 mg/dL (2.7-4.5); Potassium 3.8 mEq/L (3.5-5.1); Sodium 139 mEq/L (136-145); eGFR For African Americans > 60 (> 60); eGFR For Non-African Americans > 60 (> 60)
[2020-11-25] MEDS: Heparin 25,000UNIT/250ML 1/2NS 25,000 UNIT/250 ML IV.SOLN IVC SCH (05:28)
[2020-11-25] MEDS: Insulin LISPRO 300 UNITS/3 ML VIAL SUBQ SCH ×3 (07:34→16:37)
[2020-11-25] MEDS: Lactobacillus 1 EACH CAP.SPRINK PO SCH ×2 (07:54→20:09)
[2020-11-25] MEDS: Aspirin Enteric Coated 81 MG Tablet PO SCH (07:54)
[2020-11-25] MEDS: Cyanocobalamin (B-12) 1,000 MCG TABLET PO SCH (07:54)
[2020-11-25] MEDS: Torsemide 20 MG TABLET PO SCH ×2 (07:55→16:36)
[2020-11-25] MEDS: predniSONE 20 MG TABLET PO SCH (07:57)
[2020-11-25] MEDS: FLUoxetine 20 MG CAPSULE PO SCH (07:58)
[2020-11-25] MEDS: Magnesium Oxide 400 MG TABLET PO SCH (07:58)
[2020-11-25] MEDS: allopurinoL 100 MG TABLET PO SCH (07:59)
[2020-11-25] MEDS: Insulin DETEMIR 100 UNIT/ML X5UNITS SUBQ SCH (08:00)
[2020-11-25] MEDS: *HR* Acetylcysteine 20% 600 MG/3 ML ORAL SYRINGE PO SCH (08:00)
[2020-11-25] MEDS: Cholecalciferol (D-3) 1,000 UNIT (25MCG) TABLET PO SCH (08:05)
[2020-11-25 08:48] LABS: VBG HCO3 36 mEq/L (21-27); VBG PCO2 53 mmHg (41-51); VBG PH 7.45 pH Units (7.32-7.42); VBG PO2 131 mmHg (25-50)
[2020-11-25] MEDS: Budesonide/Formoterol 160/4.5 1 PUFF INH IH SCH ×2 (08:55→20:27)
[2020-11-25] MEDS: Nystatin SUSP 5 ML UD.LIQ PO SCH ×2 (13:33→16:36)
[2020-11-25] MEDS: cefTRIAXone 2,000 MG in Water for inj. (sterile) 20 ML IVP SCH (16:35)
[2020-11-25] MEDS: PRAMIPEXOLE 1.5 MG PO SCH (16:38)
[2020-11-25] MEDS ORDERED: *HR* Warfarin 7.5 MG TABLET PO ONE (18:00)
[2020-11-25] MEDS: DiphenhydraMINE CREAM 28.4 GM TUBE TP PRN (22:01)
[2020-11-26] MEDS: *HR* HYDROcodone/Acet 7.5/325 mg TABLET PO SCH ×5 (00:19→16:22)
[2020-11-26] MEDS: Nystatin SUSP 5 ML UD.LIQ PO SCH ×4 (00:19→16:22)
[2020-11-26] MEDS: Ipratropium/Albuterol Neb 3 ML IH SCH ×5 (00:34→16:02)
[2020-11-26 03:57] LABS: Basophils % 0.5 %; Eosinophils % 0.3 %; Hematocrit 34.9 % (35.3-44.9); Hemoglobin 11.4 g/dL (11.5-15.4); Immature Granulocytes % 0.3 % (0-4); Lymphocytes # 0.9 K/mcL (0.6-4.6); Lymphocytes % 14.3 %; Mean Corpuscular HGB Conc 32.7 g/dL (31.6-35.5); Mean Corpuscular Hemoglobin 29.1 pg (28.0-33.3); Monocytes # 0.5 K/mcL (0.0-1.3); Monocytes % 8.5 %; Neutrophils # 4.7 K/mcL (1.6-8.9); Platelet Count 207 K/mcL (140-400); Red Blood Count 3.92 M/mcL (3.82-4.97); Red Cell Distribution Width 14.1 % (11.5-14.5); Segmented Neutrophils % 76.1 %; White Blood Count 6.2 K/mcL (4.3-11.1)
[2020-11-26 04:04] LABS: Heparin anti-factor XA UFH < 0.04 IU/mL (0.30-0.70)
[2020-11-26 04:09] LABS: INR 2.6; Prothrombin Time 28.9 Seconds (9.4-12.1)
[2020-11-26 04:18] LABS: BUN/Creatinine Ratio 27 (6-26); Blood Urea Nitrogen 20 mg/dL (8-23); Calcium 9.4 mg/dL (8.6-10.3); Carbon Dioxide 36 mEq/L (23-29); Chloride 94 mEq/L (98-107); Glucose 131 mg/dL (70-105); Magnesium 1.7 mg/dL (1.6-2.6); Osmolality,Calculated 290 (280-300); Phosphorous 3.2 mg/dL (2.7-4.5); Potassium 3.5 mEq/L (3.5-5.1); Sodium 138 mEq/L (136-145); eGFR For African Americans > 60 (> 60); eGFR For Non-African Americans > 60 (> 60)
[2020-11-26] MEDS: Insulin LISPRO 300 UNITS/3 ML VIAL SUBQ SCH ×2 (07:05→11:57)
[2020-11-26] MEDS: *HR* Acetylcysteine 20% 600 MG/3 ML ORAL SYRINGE PO SCH (07:23)
[2020-11-26] MEDS: Magnesium Oxide 400 MG TABLET PO SCH (07:24)
[2020-11-26] MEDS: predniSONE 20 MG TABLET PO SCH (07:24)
[2020-11-26] MEDS: Aspirin Enteric Coated 81 MG Tablet PO SCH (07:24)
[2020-11-26] MEDS: Cyanocobalamin (B-12) 1,000 MCG TABLET PO SCH (07:24)
[2020-11-26] MEDS: FLUoxetine 20 MG CAPSULE PO SCH (07:24)
[2020-11-26] MEDS: allopurinoL 100 MG TABLET PO SCH (07:24)
[2020-11-26] MEDS: Lactobacillus 1 EACH CAP.SPRINK PO SCH (07:24)
[2020-11-26] MEDS: Cholecalciferol (D-3) 1,000 UNIT (25MCG) TABLET PO SCH (07:25)
[2020-11-26] MEDS: Insulin DETEMIR 100 UNIT/ML X5UNITS SUBQ SCH (07:25)
[2020-11-26] MEDS: Budesonide/Formoterol 160/4.5 1 PUFF INH IH SCH (07:41)
[2020-11-26 13:58] LABS: Adenovirus Not Detected (Not Detect); Bordetella Pertussis Not Detected (Not Detect); Chlamydophila pneumoniae Not Detected (Not Detect); Coronavirus 229E Not Detected (Not Detect); Coronavirus HKU1 Not Detected (Not Detect); Coronavirus NL63 Not Detected (Not Detect); Coronavirus OC43 Not Detected (Not Detect); Human Metapneumovirus Not Detected (Not Detect); Human Rhinovirus/Enterovirus Not Detected (Not Detect); Influenza A Subtype 2009 H1 Not Detected (Not Detect); Influenza B Not Detected (Not Detect); Mycoplasma pneumoniae Not Detected (Not Detect); Parainfluenza Virus 1 Not Detected (Not Detect); Parainfluenza Virus 2 Not Detected (Not Detect); Parainfluenza Virus 3 Not Detected (Not Detect); Parainfluenza Virus 4 Not Detected (Not Detect); Respiratory Syncytial Virus Not Detected (Not Detect); SARS-CoV-2 Not Detected (Not Detect)
[2020-11-26 15:48] VITALS: BP 163/89
[2020-11-26] MEDS: cefTRIAXone 2,000 MG in Water for inj. (sterile) 20 ML IVP SCH (16:23)
[2020-11-26] MEDS: Torsemide 20 MG TABLET PO SCH (16:23)
[2020-11-26] MEDS: PRAMIPEXOLE 1.5 MG PO SCH (16:24)
[2020-11-26] MEDS ORDERED: *HR* Warfarin 2.5 MG TABLET PO ONE (18:00)
[2020-11-26] MEDS ORDERED: Insulin LISPRO 300 UNITS/3 ML VIAL SUBQ ONE (21:11)
== END 2020-11-26 16:51 | disposition other institution (70) | DRG 871 ==
LOC: 2ANU → SUATTDRO 11-17 16:54
PROVIDERS: ADMIT Family Medicine; ATTEND Internal Medicine

== ENCOUNTER 2021-03-06 20:19 | Observation (INO) ==
[2021-03-07] MEDS ORDERED: Acetaminophen 325 MG TABLET PO PRN (01:48)
[2021-03-07] MEDS ORDERED: Ondansetron 4 MG/2 ML VIAL IVP PRN (01:48)
[2021-03-07] MEDS ORDERED: Naloxone 0.4 MG/ML INJ IVP PRN (01:48)
[2021-03-07] MEDS ORDERED: D5% in Water 1,000 ML IVC PRN (01:57)
[2021-03-07] MEDS ORDERED: *HR* Dextrose 50 % in Water (Vial) 50 ML VIAL IVP PRN (01:57)
[2021-03-07] MEDS ORDERED: Dextrose Gel 15 GM/37.5 ML TUBE PO PRN ×2 (01:57)
[2021-03-07 03:27] LABS: Calcium 9.4 mg/dL (8.6-10.3); Potassium 2.7 mEq/L (3.5-5.1)
[2021-03-07 03:28] LABS: Basophils % 0.6 %; Eosinophils # 0.1 K/mcL (0.0-0.6); Eosinophils % 1.6 %; Hematocrit 20.6 % (35.3-44.9); Lymphocytes # 1.9 K/mcL (0.6-4.6); Lymphocytes % 37.5 %; Mean Corpuscular Hemoglobin 29.9 pg (28.0-33.3); Mean Corpuscular Volume 93.2 fL (83.0-100.0); Mean Platelet Volume 12.5 fL (9.4-12.4); Monocytes # 0.7 K/mcL (0.0-1.3); Monocytes % 13.4 %; Neutrophils # 2.4 K/mcL (1.6-8.9); Platelet Count 159 K/mcL (140-400); Red Blood Count 2.21 M/mcL (3.82-4.97); Red Cell Distribution Width 16.6 % (11.5-14.5); Segmented Neutrophils % 46.9 %
[2021-03-07 03:31] LABS: Hemoglobin 6.6 g/dL (11.5-15.4)
[2021-03-07] MEDS: Pantoprazole 40 MG in 0.9 % Sodium Chloride Mini Bag 100 ML IVC SCH ×3 (03:37→18:42)
[2021-03-07 03:44] LABS: Thyroid Stimulating Hormone 1.375 mcIU/mL (0.340-5.600)
[2021-03-07] MEDS ORDERED: Potassium Chloride 40 MEQ, Lidocaine 1% 2 ML in 0.9 % Sodium Chloride 500 ML IVPB ONE (04:00)
[2021-03-07 04:01] LABS: INR 3.4; Prothrombin Time 37.9 Seconds (9.4-12.1)
[2021-03-07 04:02] LABS: Folate > 22.3 ng/mL (3.0-16.0); Vitamin B12 1076 pg/mL (250-1100)
[2021-03-07] MEDS: Octreotide 400 MCG in 0.9 % Sodium Chloride 100 ML IVC SCH ×3 (04:23→22:30)
[2021-03-07] MEDS ORDERED: *HR* Phytonadione 5 MG TABLET PO ONE (08:25)
[2021-03-07] MEDS: Insulin LISPRO 300 UNITS/3 ML VIAL SUBQ SCH ×3 (09:16→18:53)
[2021-03-07] MEDS ORDERED: 0.9 % Sodium Chloride 500 ML IVC ONE (11:50)
[2021-03-07] MEDS ORDERED: tiZANidine 4 MG TABLET PO PRN (18:33)
[2021-03-07] MEDS ORDERED: Nystatin POWDER 30 GM BOTTLE TP PRN (18:33)
[2021-03-07] MEDS ORDERED: *HR* HYDROcodone/Acet 7.5/325 mg TABLET PO PRN (18:33)
[2021-03-07] MEDS ORDERED: Fluticasone Propionate Nasal 50 MCG/SPRAY BOTTLE NS PRN (18:33)
[2021-03-07] MEDS ORDERED: Ipratropium/Albuterol Neb 3 ML IH PRN (18:33)
[2021-03-07 21:12] LABS: Hematocrit 23.3 % (35.3-44.9); Hemoglobin 7.4 g/dL (11.5-15.4)
[2021-03-07] MEDS: Lactobacillus 1 EACH CAP.SPRINK PO SCH (22:11)
[2021-03-07] MEDS: Pregabalin 75 MG CAPSULE PO SCH (22:11)
[2021-03-08] MEDS: Pantoprazole 40 MG in 0.9 % Sodium Chloride Mini Bag 100 ML IVC SCH ×4 (00:27→20:58)
[2021-03-08 06:05] LABS: Basophils % 0.8 %; Eosinophils # 0.2 K/mcL (0.0-0.6); Eosinophils % 3.6 %; Immature Granulocytes % 0.2 % (0-4); Lymphocytes # 1.5 K/mcL (0.6-4.6); Lymphocytes % 29.1 %; Mean Corpuscular HGB Conc 31.8 g/dL (31.6-35.5); Mean Corpuscular Hemoglobin 29.4 pg (28.0-33.3); Mean Corpuscular Volume 92.4 fL (83.0-100.0); Monocytes # 0.6 K/mcL (0.0-1.3); Monocytes % 11.4 %; Neutrophils # 2.7 K/mcL (1.6-8.9); Platelet Count 171 K/mcL (140-400); Red Blood Count 2.38 M/mcL (3.82-4.97); Red Cell Distribution Width 17.4 % (11.5-14.5); Segmented Neutrophils % 54.9 %
[2021-03-08 06:47] LABS: Calcium 8.9 mg/dL (8.6-10.3); Potassium 2.8 mEq/L (3.5-5.1)
[2021-03-08] MEDS ORDERED: Potassium Chloride 40 MEQ, Lidocaine 1% 2 ML in 0.9 % Sodium Chloride 500 ML IVPB ONE (08:05)
[2021-03-08] MEDS ORDERED: *HR* Propofol 200 MG/20 ML VIAL IVP ONE (10:53)
[2021-03-08] MEDS ORDERED: Lidocaine -MPF 2% 2 ML VIAL ONE (10:54)
[2021-03-08] MEDS ORDERED: *HR* Succinylcholine 200 MG/10 ML VIAL IVP ONE (10:54)
[2021-03-08] MEDS: Pregabalin 75 MG CAPSULE PO SCH ×3 (15:13→20:22)
[2021-03-08] MEDS: Cholecalciferol (D-3) 1,000 UNIT (25MCG) TABLET PO SCH (15:15)
[2021-03-08] MEDS: Cyanocobalamin (B-12) 1,000 MCG TABLET PO SCH (15:15)
[2021-03-08] MEDS: FLUoxetine 20 MG CAPSULE PO SCH (15:15)
[2021-03-08] MEDS: Multivit/Ca/Min/Fe/FA 1 TAB TABLET PO SCH (15:15)
[2021-03-08] MEDS: Insulin LISPRO 300 UNITS/3 ML VIAL SUBQ SCH ×2 (15:16→18:39)
[2021-03-08] MEDS: *HR* Acetylcysteine 20% 600 MG/3 ML ORAL SYRINGE PO SCH (15:16)
[2021-03-08] MEDS: Aspirin Enteric Coated 81 MG Tablet PO SCH (15:17)
[2021-03-08] MEDS: Lactobacillus 1 EACH CAP.SPRINK PO SCH ×2 (15:17→20:22)
[2021-03-08] MEDS: Lactulose Oral Soln 20 GM/30 ML UDC PO SCH (15:17)
[2021-03-08] MEDS: PRAMIPEXOLE 1.5 MG PO SCH (19:07)
[2021-03-08] MEDS: Octreotide 400 MCG in 0.9 % Sodium Chloride 100 ML IVC SCH (23:31)
[2021-03-09] MEDS: Pantoprazole 40 MG in 0.9 % Sodium Chloride Mini Bag 100 ML IVC SCH ×2 (02:54→09:00)
[2021-03-09 06:31] LABS: Basophils % 0.7 %; Eosinophils # 0.2 K/mcL (0.0-0.6); Eosinophils % 4.9 %; Hematocrit 23.9 % (35.3-44.9); Hemoglobin 7.4 g/dL (11.5-15.4); Immature Granulocytes % 0.2 % (0-4); Lymphocytes # 1.5 K/mcL (0.6-4.6); Lymphocytes % 33.9 %; Mean Corpuscular Hemoglobin 29.7 pg (28.0-33.3); Mean Platelet Volume 11.8 fL (9.4-12.4); Monocytes # 0.6 K/mcL (0.0-1.3); Monocytes % 12.4 %; Neutrophils # 2.1 K/mcL (1.6-8.9); Platelet Count 175 K/mcL (140-400); Red Blood Count 2.49 M/mcL (3.82-4.97); Red Cell Distribution Width 17.7 % (11.5-14.5); Segmented Neutrophils % 47.9 %; White Blood Count 4.5 K/mcL (4.3-11.1)
[2021-03-09 06:38] LABS: INR 1.3; Prothrombin Time 14.1 Seconds (9.4-12.1)
[2021-03-09 06:47] LABS: Calcium 9.1 mg/dL (8.6-10.3); Potassium 3.2 mEq/L (3.5-5.1)
[2021-03-09] MEDS: Cyanocobalamin (B-12) 1,000 MCG TABLET PO SCH (08:58)
[2021-03-09] MEDS: Lactobacillus 1 EACH CAP.SPRINK PO SCH ×2 (08:58→22:09)
[2021-03-09] MEDS: Aspirin Enteric Coated 81 MG Tablet PO SCH (08:59)
[2021-03-09] MEDS: Pregabalin 75 MG CAPSULE PO SCH ×3 (08:59→22:09)
[2021-03-09] MEDS: FLUoxetine 20 MG CAPSULE PO SCH (08:59)
[2021-03-09] MEDS: Multivit/Ca/Min/Fe/FA 1 TAB TABLET PO SCH (08:59)
[2021-03-09] MEDS: Cholecalciferol (D-3) 1,000 UNIT (25MCG) TABLET PO SCH (08:59)
[2021-03-09] MEDS: Insulin LISPRO 300 UNITS/3 ML VIAL SUBQ SCH ×3 (09:09→18:51)
[2021-03-09] MEDS: Lactulose Oral Soln 20 GM/30 ML UDC PO SCH (09:19)
[2021-03-09 18:56] LABS: Hematocrit 26.7 % (35.3-44.9); Hemoglobin 8.6 g/dL (11.5-15.4)
[2021-03-09 19:28] LABS: Calcium 9.1 mg/dL (8.6-10.3); Potassium 4.2 mEq/L (3.5-5.1)
[2021-03-09] MEDS: *HR* Acetylcysteine 20% 600 MG/3 ML ORAL SYRINGE PO SCH (22:09)
[2021-03-09] MEDS: PRAMIPEXOLE 1.5 MG PO SCH (22:09)
[2021-03-10 06:44] VITALS: BP 112/54; PULSE 74; TEMP 97.6; O2SAT 99
[2021-03-10] MEDS ORDERED: Pantoprazole 40 MG VIAL IVP SCH (09:00)
[2021-03-10] MEDS: Pregabalin 75 MG CAPSULE PO SCH (10:48)
[2021-03-10] MEDS: Aspirin Enteric Coated 81 MG Tablet PO SCH (10:48)
[2021-03-10] MEDS: FLUoxetine 20 MG CAPSULE PO SCH (10:48)
[2021-03-10] MEDS: Multivit/Ca/Min/Fe/FA 1 TAB TABLET PO SCH (10:49)
[2021-03-10] MEDS: Cyanocobalamin (B-12) 1,000 MCG TABLET PO SCH (10:49)
[2021-03-10] MEDS: Lactobacillus 1 EACH CAP.SPRINK PO SCH (10:49)
[2021-03-10] MEDS: Cholecalciferol (D-3) 1,000 UNIT (25MCG) TABLET PO SCH (10:49)
[2021-03-10] MEDS: Insulin LISPRO 300 UNITS/3 ML VIAL SUBQ SCH (10:50)
[2021-03-10] MEDS: Lactulose Oral Soln 20 GM/30 ML UDC PO SCH (10:50)
== END 2021-03-10 11:30 | disposition home health service (06) ==
LOC: INTOOBSV 03-07 00:17 → 3NENU 03-07 00:17 → SUATTDRO 03-07 00:17
PROVIDERS: ADMIT Family Medicine; ATTEND Internal Medicine

== ENCOUNTER 2021-04-04 18:31 | Inpatient (IN) ==
[2021-04-04] MEDS ORDERED: Piperacillin/Tazobactam 3.375 GM in Water for inj. (sterile) 20 ML IVP ONE (19:10)
[2021-04-04] MEDS ORDERED: Pantoprazole 40 MG VIAL IVP ONE (19:14)
[2021-04-04 19:51] LABS: Eosinophils % 0.2 %; Hematocrit 35.5 % (35.3-44.9); Immature Granulocytes % 0.2 % (0-4); Red Cell Distribution Width 15.9 % (11.5-14.5)
[2021-04-04 19:53] LABS: Basophils # 0.1 K/mcL (0.0-0.2); Basophils % 0.5 %; Hemoglobin 10.9 g/dL (11.5-15.4); Immature Platelets 12.3 % (1.1-6.1); Lymphocytes # 1.2 K/mcL (0.6-4.6); Lymphocytes % 9.7 %; Mean Corpuscular HGB Conc 30.7 g/dL (31.6-35.5); Mean Corpuscular Hemoglobin 29.2 pg (28.0-33.3); Mean Corpuscular Volume 95.2 fL (83.0-100.0); Mean Platelet Volume 13.1 fL (9.4-12.4); Monocytes % 7.8 %; Neutrophils # 9.9 K/mcL (1.6-8.9); Platelet Count 201 K/mcL (140-400); Red Blood Count 3.73 M/mcL (3.82-4.97); Segmented Neutrophils % 81.6 %; White Blood Count 12.1 K/mcL (4.3-11.1)
[2021-04-04 19:57] LABS: Monocytes # 0.9 K/mcL (0.0-1.3)
[2021-04-04 19:59] LABS: INR 1.8; Prothrombin Time 19.7 Seconds (9.4-12.1)
[2021-04-04 20:02] LABS: Activated Partial Thrombo Time 37.8 Seconds (26.0-36.0)
[2021-04-04 20:17] LABS: Bilirubin,Urine Negative (Negative); Blood,Urine Negative (Negative); Clarity,Urine Clear (Clear); Color,Urine Colorless (Yellow); Glucose,Urine (UA) Normal (Normal); Ketones,Urine Negative (Negative); Leukocyte Esterase,Urine Negative (Negative); Nitrite,Urine Negative (Negative); PH,Urine 6.5 pH Units (5.0-8.0); Protein,Urine Negative (Neg-Trace); Urobilinogen,Urine Normal (Normal)
[2021-04-04] MEDS: Octreotide 400 MCG in 0.9 % Sodium Chloride 100 ML IVC SCH (20:46)
[2021-04-04] MEDS: Pantoprazole 40 MG in 0.9 % Sodium Chloride Mini Bag 100 ML IVC SCH (20:56)
[2021-04-04 21:29] LABS: Alanine Aminotransferase 11 Units/L (7-52); Albumin 4.3 g/dL (3.5-5.7); Albumin/Globulin Ratio 1.1 (1.1-2.2); Alkaline Phosphatase 93 Units/L (34-104); Aspartate Amino Transferase 28 Units/L (13-39); BUN/Creatinine Ratio 47 (6-26); Bilirubin,Direct 0.2 mg/dL (0.0-0.2); Bilirubin,Indirect 0.6 mg/dL (0.0-1.0); Bilirubin,Total 0.8 mg/dL (0.3-1.0); Blood Urea Nitrogen 74 mg/dL (8-23); Calcium 10.3 mg/dL (8.6-10.3); Carbon Dioxide 34 mEq/L (23-29); Chloride 89 mEq/L (98-107); Globulin 3.9 g/dL (2.4-3.5); Glucose 149 mg/dL (70-105); Lipase 27 Units/L (11-82); Magnesium 2.5 mg/dL (1.6-2.6); Osmolality,Calculated 303 (280-300); Phosphorous 3.5 mg/dL (2.7-4.5); Potassium 3.4 mEq/L (3.5-5.1); Sodium 134 mEq/L (136-145); Total Protein 8.2 g/dL (6.4-8.9); eGFR For African Americans 38 (> 60); eGFR For Non-African Americans 31 (> 60)
[2021-04-04 21:30] LABS: Troponin I < 0.03 ng/mL (< 0.04)
[2021-04-04] MEDS ORDERED: Lactulose Oral Soln 20 GM/30 ML UDC PO ONE (22:50)
[2021-04-04] MEDS ORDERED: cefTRIAXone 2,000 MG in Water for inj. (sterile) 20 ML IVP ONE (22:51)
[2021-04-04] MEDS ORDERED: Ampicillin 2,000 MG in 0.9 % Sodium Chloride Mini Bag 100 ML IVPB ONE (22:52)
[2021-04-04] MEDS ORDERED: Melatonin 3 MG TABLET PO PRN (23:05)
[2021-04-04] MEDS ORDERED: Ondansetron 4 MG/2 ML VIAL IVP PRN (23:05)
[2021-04-04] MEDS ORDERED: Naloxone 0.4 MG/ML INJ IVP PRN (23:05)
[2021-04-04] MEDS ORDERED: Acetaminophen 325 MG TABLET PO PRN (23:05)
[2021-04-04] MEDS ORDERED: 0.9 % Sodium Chloride 1,000 ML IVC SCH (23:15)
[2021-04-04 23:40] LABS: Influenza A PCR Negative (Negative); Influenza B PCR Negative (Negative); Resp. Syncytial Virus PCR Negative (Negative)
[2021-04-04 23:41] LABS: SARS-CoV-2 by PCR (In House) Negative (Negative)
[2021-04-05] MEDS: Ampicillin 2,000 MG in 0.9 % Sodium Chloride Mini Bag 100 ML IVPB SCH ×6 (02:05→22:32)
[2021-04-05] MEDS: Pantoprazole 40 MG in 0.9 % Sodium Chloride Mini Bag 100 ML IVC SCH (02:59)
[2021-04-05] MEDS: Acyclovir 500 MG in D5% in Water 250 ML IVPB SCH ×2 (03:04→10:22)
[2021-04-05] MEDS: Octreotide 400 MCG in 0.9 % Sodium Chloride 100 ML IVC SCH ×2 (05:40→15:11)
[2021-04-05] MEDS: Pantoprazole 40 MG VIAL IVP SCH ×2 (05:41→16:44)
[2021-04-05 07:11] LABS: Hematocrit 32.3 % (35.3-44.9); Mean Corpuscular Hemoglobin 29.4 pg (28.0-33.3); Mean Platelet Volume 12.8 fL (9.4-12.4); Platelet Count 162 K/mcL (140-400); Red Cell Distribution Width 15.9 % (11.5-14.5); White Blood Count 9.9 K/mcL (4.3-11.1)
[2021-04-05 07:33] LABS: Albumin 3.8 g/dL (3.5-5.7); Albumin/Globulin Ratio 1.1 (1.1-2.2); Bilirubin,Total 0.9 mg/dL (0.3-1.0); Calcium 9.5 mg/dL (8.6-10.3); Globulin 3.4 g/dL (2.4-3.5); Potassium 2.8 mEq/L (3.5-5.1); Total Protein 7.2 g/dL (6.4-8.9)
[2021-04-05] MEDS ORDERED: D5% in Water 1,000 ML IVC PRN (07:47)
[2021-04-05] MEDS ORDERED: Dextrose Gel 15 GM/37.5 ML TUBE PO PRN ×2 (07:47)
[2021-04-05] MEDS ORDERED: *HR* Dextrose 50 % in Water (Syg) 50 ML SYRINGE IVP PRN (07:47)
[2021-04-05] MEDS ORDERED: Lactulose Oral Soln 20 GM/30 ML UDC PO PRN (09:00)
[2021-04-05] MEDS: Insulin DETEMIR 100 UNIT/ML X5UNITS SUBQ SCH (09:42)
[2021-04-05 09:56] LABS: Acinetobacter baumannii by PCR Not Detected (Not Detect); Enterobacter cloacae Cmplx PCR Not Detected (Not Detect); Enterobacteriaceae by PCR Not Detected (Not Detect); Enterococcus by PCR DETECTED (Not Detect); Escherichia coli by PCR Not Detected (Not Detect); Klebsiella oxytoca by PCR Not Detected (Not Detect); Klebsiella pneumoniae by PCR Not Detected (Not Detect); Proteus by PCR Not Detected (Not Detect); Pseudomonas aeruginosa by PCR Not Detected (Not Detect); Serratia marcescens by PCR Not Detected (Not Detect); Staphylococcus aureus by PCR Not Detected (Not Detect); Staphylococcus by PCR Not Detected (Not Detect); Streptococcus agalactiae(B)PCR Not Detected (Not Detect); Streptococcus by PCR Not Detected (Not Detect); Streptococcus pneumoniae PCR Not Detected (Not Detect); Streptococcus pyogenes (A) PCR Not Detected (Not Detect); vanA/B Vancomycin-Resist Genes Not Detected (Not Detect)
[2021-04-05 09:57] LABS: Candida albicans by PCR Not Detected (Not Detect); Candida glabrata by PCR Not Detected (Not Detect); Candida krusei by PCR Not Detected (Not Detect); Candida parapsilosis by PCR Not Detected (Not Detect); Candida tropicalis by PCR Not Detected (Not Detect)
[2021-04-05] MEDS ORDERED: cefTRIAXone 2,000 MG in 0.9 % Sodium Chloride Mini Bag 100 ML IVPB SCH (10:00)
[2021-04-05] MEDS ORDERED: Fluticasone Propionate Nasal 50 MCG/SPRAY BOTTLE NS PRN (11:56)
[2021-04-05] MEDS ORDERED: 0.9 % Sodium Chloride 1,000 ML IVC SCH (12:00)
[2021-04-05] MEDS: FLUoxetine 20 MG CAPSULE PO SCH (12:49)
[2021-04-05] MEDS: Insulin LISPRO 300 UNITS/3 ML VIAL SUBQ SCH ×2 (12:57→16:56)
[2021-04-05] MEDS ORDERED: Perflutren Lipid Microsphere 1.3 ML in 0.9 % Sodium Chloride 8.7 ML IVP PRN (14:02)
[2021-04-05] MEDS ORDERED: Warfarin perPT PO PRN (18:00)
[2021-04-05] MEDS ORDERED: *HR* Warfarin 3 MG TABLET PO ONE (18:00)
[2021-04-05] MEDS: PRAMIPEXOLE DIHYDROCHLORIDE 1.5 MG PO SCH (20:05)
[2021-04-05] MEDS: tiZANidine 4 MG TABLET PO PRN (22:30)
[2021-04-06] MEDS: Octreotide 400 MCG in 0.9 % Sodium Chloride 100 ML IVC SCH (00:29)
[2021-04-06] MEDS: *HR* HYDROcodone/Acet 7.5/325 mg TABLET PO PRN ×2 (02:02→18:32)
[2021-04-06] MEDS: Pantoprazole 40 MG VIAL IVP SCH ×2 (04:56→18:15)
[2021-04-06] MEDS: Ampicillin 2,000 MG in 0.9 % Sodium Chloride Mini Bag 100 ML IVPB SCH ×4 (04:56→23:15)
[2021-04-06 06:10] LABS: Basophils % 0.7 %; Eosinophils # 0.2 K/mcL (0.0-0.6); Eosinophils % 4.1 %; Hematocrit 31.3 % (35.3-44.9); Hemoglobin 9.5 g/dL (11.5-15.4); Immature Granulocytes % 0.3 % (0-4); Lymphocytes # 1.1 K/mcL (0.6-4.6); Lymphocytes % 18.3 %; Mean Corpuscular HGB Conc 30.4 g/dL (31.6-35.5); Mean Corpuscular Hemoglobin 29.1 pg (28.0-33.3); Mean Corpuscular Volume 95.7 fL (83.0-100.0); Mean Platelet Volume 12.6 fL (9.4-12.4); Monocytes % 17.8 %; Neutrophils # 3.4 K/mcL (1.6-8.9); Platelet Count 151 K/mcL (140-400); Red Blood Count 3.27 M/mcL (3.82-4.97); Segmented Neutrophils % 58.8 %; White Blood Count 5.9 K/mcL (4.3-11.1)
[2021-04-06 06:17] LABS: INR 2.1; Prothrombin Time 22.9 Seconds (9.4-12.1)
[2021-04-06 06:31] LABS: Albumin 3.6 g/dL (3.5-5.7); Albumin/Globulin Ratio 1.1 (1.1-2.2); Bilirubin,Total 0.6 mg/dL (0.3-1.0); Calcium 8.9 mg/dL (8.6-10.3); Globulin 3.2 g/dL (2.4-3.5); Potassium 3.1 mEq/L (3.5-5.1); Total Protein 6.8 g/dL (6.4-8.9)
[2021-04-06] MEDS: Lactulose Oral Soln 20 GM/30 ML UDC PO SCH (08:14)
[2021-04-06] MEDS: Aspirin Enteric Coated 81 MG Tablet PO SCH (08:17)
[2021-04-06] MEDS: FLUoxetine 20 MG CAPSULE PO SCH (08:18)
[2021-04-06] MEDS: Cholecalciferol (D-3) 1,000 UNIT (25MCG) TABLET PO SCH (08:18)
[2021-04-06] MEDS: Cyanocobalamin (B-12) 1,000 MCG TABLET PO SCH (08:18)
[2021-04-06] MEDS: Magnesium Oxide 400 MG TABLET PO SCH (08:18)
[2021-04-06] MEDS: allopurinoL 100 MG TABLET PO SCH (08:18)
[2021-04-06] MEDS: Lactobacillus 1 EACH CAP.SPRINK PO SCH (08:18)
[2021-04-06] MEDS: Insulin DETEMIR 100 UNIT/ML X5UNITS SUBQ SCH (08:22)
[2021-04-06] MEDS: Insulin LISPRO 300 UNITS/3 ML VIAL SUBQ SCH ×3 (08:23→17:15)
[2021-04-06] MEDS: *HR* Acetylcysteine 20% 600 MG/3 ML ORAL SYRINGE PO SCH (10:57)
[2021-04-06] MEDS ORDERED: *HR* Warfarin 7.5 MG TABLET PO ONE (18:00)
[2021-04-06] MEDS: PRAMIPEXOLE DIHYDROCHLORIDE 1.5 MG PO SCH (19:53)
[2021-04-06] MEDS: tiZANidine 4 MG TABLET PO PRN (23:15)
[2021-04-07 05:44] LABS: Hematocrit 30.4 % (35.3-44.9); Hemoglobin 9.2 g/dL (11.5-15.4); Mean Corpuscular HGB Conc 30.3 g/dL (31.6-35.5); Mean Corpuscular Hemoglobin 28.9 pg (28.0-33.3); Mean Corpuscular Volume 95.6 fL (83.0-100.0); Mean Platelet Volume 12.5 fL (9.4-12.4); Platelet Count 162 K/mcL (140-400); Red Blood Count 3.18 M/mcL (3.82-4.97); Red Cell Distribution Width 15.9 % (11.5-14.5); White Blood Count 5.3 K/mcL (4.3-11.1)
[2021-04-07 05:54] LABS: INR 2.6; Prothrombin Time 28.7 Seconds (9.4-12.1)
[2021-04-07 06:00] LABS: Calcium 9.1 mg/dL (8.6-10.3)
[2021-04-07] MEDS: Pantoprazole 40 MG VIAL IVP SCH (06:34)
[2021-04-07] MEDS: Ampicillin 2,000 MG in 0.9 % Sodium Chloride Mini Bag 100 ML IVPB SCH ×4 (06:35→22:44)
[2021-04-07] MEDS: Insulin LISPRO 300 UNITS/3 ML VIAL SUBQ SCH ×3 (08:52→17:39)
[2021-04-07] MEDS: Lactulose Oral Soln 20 GM/30 ML UDC PO SCH (08:53)
[2021-04-07] MEDS: Lactobacillus 1 EACH CAP.SPRINK PO SCH (08:53)
[2021-04-07] MEDS: Cyanocobalamin (B-12) 1,000 MCG TABLET PO SCH (08:53)
[2021-04-07] MEDS: FLUoxetine 20 MG CAPSULE PO SCH (08:53)
[2021-04-07] MEDS: Aspirin Enteric Coated 81 MG Tablet PO SCH (08:53)
[2021-04-07] MEDS: Magnesium Oxide 400 MG TABLET PO SCH (08:53)
[2021-04-07] MEDS: allopurinoL 100 MG TABLET PO SCH (08:53)
[2021-04-07] MEDS: Pregabalin 75 MG CAPSULE PO SCH ×2 (08:53→19:24)
[2021-04-07] MEDS: Cholecalciferol (D-3) 1,000 UNIT (25MCG) TABLET PO SCH (08:53)
[2021-04-07] MEDS: *HR* Acetylcysteine 20% 600 MG/3 ML ORAL SYRINGE PO SCH (08:54)
[2021-04-07] MEDS: Insulin DETEMIR 100 UNIT/ML X5UNITS SUBQ SCH (08:56)
[2021-04-07] MEDS ORDERED: *HR* Warfarin 3 MG TABLET PO ONE (18:00)
[2021-04-07] MEDS: Torsemide 20 MG TABLET PO SCH (19:24)
[2021-04-07] MEDS: PRAMIPEXOLE DIHYDROCHLORIDE 1.5 MG PO SCH (19:24)
[2021-04-08] MEDS: Ampicillin 2,000 MG in 0.9 % Sodium Chloride Mini Bag 100 ML IVPB SCH ×4 (05:09→23:25)
[2021-04-08] MEDS: Insulin LISPRO 300 UNITS/3 ML VIAL SUBQ SCH ×3 (07:18→16:26)
[2021-04-08] MEDS: Magnesium Oxide 400 MG TABLET PO SCH (07:54)
[2021-04-08] MEDS: Pregabalin 75 MG CAPSULE PO SCH ×2 (07:54→21:27)
[2021-04-08] MEDS: Lactulose Oral Soln 20 GM/30 ML UDC PO SCH (07:54)
[2021-04-08] MEDS: Cyanocobalamin (B-12) 1,000 MCG TABLET PO SCH (07:54)
[2021-04-08] MEDS: Insulin DETEMIR 100 UNIT/ML X5UNITS SUBQ SCH (07:54)
[2021-04-08] MEDS: Cholecalciferol (D-3) 1,000 UNIT (25MCG) TABLET PO SCH (07:54)
[2021-04-08] MEDS: *HR* Acetylcysteine 20% 600 MG/3 ML ORAL SYRINGE PO SCH (07:54)
[2021-04-08] MEDS: Aspirin Enteric Coated 81 MG Tablet PO SCH (07:54)
[2021-04-08] MEDS: FLUoxetine 20 MG CAPSULE PO SCH (07:55)
[2021-04-08] MEDS: Torsemide 20 MG TABLET PO SCH ×2 (07:55→21:27)
[2021-04-08] MEDS: allopurinoL 100 MG TABLET PO SCH (07:55)
[2021-04-08] MEDS: Lactobacillus 1 EACH CAP.SPRINK PO SCH (07:55)
[2021-04-08 08:08] LABS: Hematocrit 31.6 % (35.3-44.9); Hemoglobin 9.7 g/dL (11.5-15.4); Immature Platelets 9.7 % (1.1-6.1); Mean Corpuscular HGB Conc 30.7 g/dL (31.6-35.5); Mean Corpuscular Hemoglobin 29.2 pg (28.0-33.3); Mean Corpuscular Volume 95.2 fL (83.0-100.0); Red Blood Count 3.32 M/mcL (3.82-4.97)
[2021-04-08 08:14] LABS: INR 2.4; Prothrombin Time 26.3 Seconds (9.4-12.1)
[2021-04-08 08:19] LABS: Calcium 9.6 mg/dL (8.6-10.3); Magnesium 2.3 mg/dL (1.6-2.6); Potassium 3.3 mEq/L (3.5-5.1)
[2021-04-08] MEDS ORDERED: *HR* Warfarin 3 MG TABLET PO ONE (18:00)
[2021-04-08 18:07] LABS: Lambda Qnt Free Light Chains 43.83 mg/L (5.71-26.30)
[2021-04-08] MEDS: PRAMIPEXOLE DIHYDROCHLORIDE 1.5 MG PO SCH (21:34)
[2021-04-08] MEDS: tiZANidine 4 MG TABLET PO PRN (23:27)
[2021-04-09] MEDS: Ampicillin 2,000 MG in 0.9 % Sodium Chloride Mini Bag 100 ML IVPB SCH ×2 (05:27→12:33)
[2021-04-09 08:14] LABS: INR 2.4; Prothrombin Time 26.5 Seconds (9.4-12.1)
[2021-04-09] MEDS: Insulin LISPRO 300 UNITS/3 ML VIAL SUBQ SCH ×2 (09:21→12:29)
[2021-04-09] MEDS: Lactulose Oral Soln 20 GM/30 ML UDC PO SCH (09:22)
[2021-04-09] MEDS: Cholecalciferol (D-3) 1,000 UNIT (25MCG) TABLET PO SCH (09:23)
[2021-04-09] MEDS: Aspirin Enteric Coated 81 MG Tablet PO SCH (09:23)
[2021-04-09] MEDS: Pregabalin 75 MG CAPSULE PO SCH (09:23)
[2021-04-09] MEDS: FLUoxetine 20 MG CAPSULE PO SCH (09:23)
[2021-04-09] MEDS: Magnesium Oxide 400 MG TABLET PO SCH (09:23)
[2021-04-09] MEDS: *HR* Acetylcysteine 20% 600 MG/3 ML ORAL SYRINGE PO SCH (09:23)
[2021-04-09] MEDS: Lactobacillus 1 EACH CAP.SPRINK PO SCH (09:23)
[2021-04-09] MEDS: Cyanocobalamin (B-12) 1,000 MCG TABLET PO SCH (09:23)
[2021-04-09] MEDS: allopurinoL 100 MG TABLET PO SCH (09:23)
[2021-04-09] MEDS: Torsemide 20 MG TABLET PO SCH (09:23)
[2021-04-09] MEDS: Insulin DETEMIR 100 UNIT/ML X5UNITS SUBQ SCH (09:45)
[2021-04-09 10:44] LABS: Kappa Qnt Free Light Chains 121.17 mg/L (3.30-19.40)
[2021-04-09 12:18] VITALS: BP 110/65; PULSE 97; TEMP 98.1; O2SAT 98
[2021-04-09] MEDS ORDERED: *HR* Warfarin 3 MG TABLET PO ONE (18:00)
[2021-04-10 17:32] LABS: Alpha 2 Globulin (PEP) 0.77 g/dL (0.48-1.05); Beta Globulin (PEP) 0.93 g/dL (0.48-1.10)
[2021-04-11 10:32] LABS: IFE Reflexed NOT DONE
[2021-04-13 22:28] LABS: ANCA IFA Titer <1:20 (<1:20)
[2021-04-14 10:48] LABS: ANCA IFA Pattern NONE DETECTED (None Detected); Serine Protease-3 Antibody 5 AU/mL (0-19)
[2021-04-15 14:47] LABS: Ribonucleic Protein IgG-Sm/RNP 12; SSA 52 (Anti-RO) Antibody 3 AU/mL (0-40); SSA 60 (Anti-RO) Antibody 0 AU/mL (0-40)
== END 2021-04-09 12:46 | DRG 871 ==
LOC: 3BNU 18:31 → EMEROOARM 18:31 → SUATTDRO 23:03 → OBSVTOIN 23:03 → 3BNU 23:50
PROVIDERS: ADMIT Internal Medicine; ATTEND Internal Medicine

== ENCOUNTER 2021-04-13 14:10 | Observation (INO) ==
[2021-04-13] MEDS ORDERED: Naloxone 0.4 MG/ML INJ IVP PRN (17:18)
[2021-04-13 17:44] LABS: Hematocrit 23.7 % (35.3-44.9)
[2021-04-13 17:47] LABS: Hemoglobin 7.4 g/dL (11.5-15.4)
[2021-04-13] MEDS ORDERED: *HR* Phytonadione 10 MG/ML AMPUL SQ ONE (18:40)
[2021-04-13] MEDS: Octreotide 400 MCG in 0.9 % Sodium Chloride 100 ML IVC SCH (20:01)
[2021-04-13] MEDS ORDERED: Furosemide 20 MG/2 ML VIAL IVP ONE (20:51)
[2021-04-13 22:58] LABS: Hematocrit 26.1 % (35.3-44.9); Hemoglobin 7.9 g/dL (11.5-15.4)
[2021-04-13] MEDS ORDERED: tiZANidine 4 MG TABLET PO PRN (23:43)
[2021-04-14] MEDS: Ampicillin 2,000 MG in 0.9 % Sodium Chloride Mini Bag 100 ML IVPB SCH ×3 (01:24→17:02)
[2021-04-14 04:42] LABS: Basophils # 0.1 K/mcL (0.0-0.2); Basophils % 0.9 %; Eosinophils # 0.2 K/mcL (0.0-0.6); Eosinophils % 3.1 %; Hematocrit 22.3 % (35.3-44.9); Hemoglobin 7.1 g/dL (11.5-15.4); Immature Granulocytes % 0.4 % (0-4); Lymphocytes # 1.3 K/mcL (0.6-4.6); Lymphocytes % 23.7 %; Mean Corpuscular HGB Conc 31.8 g/dL (31.6-35.5); Mean Corpuscular Hemoglobin 30.1 pg (28.0-33.3); Mean Corpuscular Volume 94.5 fL (83.0-100.0); Monocytes # 0.5 K/mcL (0.0-1.3); Monocytes % 8.4 %; Neutrophils # 3.5 K/mcL (1.6-8.9); Platelet Count 173 K/mcL (140-400); Red Blood Count 2.36 M/mcL (3.82-4.97); Red Cell Distribution Width 15.5 % (11.5-14.5); Segmented Neutrophils % 63.5 %; White Blood Count 5.5 K/mcL (4.3-11.1)
[2021-04-14 05:01] LABS: Calcium 9.2 mg/dL (8.6-10.3); Potassium 4.8 mEq/L (3.5-5.1)
[2021-04-14] MEDS ORDERED: Pantoprazole 40 MG VIAL IVP SCH (06:00)
[2021-04-14 09:03] LABS: Bilirubin,Urine Negative (Negative); Blood,Urine Negative (Negative); Clarity,Urine Clear (Clear); Color,Urine Yellow (Yellow); Glucose,Urine (UA) Normal (Normal); Ketones,Urine Negative (Negative); Leukocyte Esterase,Urine Negative (Negative); Nitrite,Urine Negative (Negative); Protein,Urine Trace mg/dL (Neg-Trace); Specific Gravity,Urine 1.017 (1.010-1.025); Urobilinogen,Urine Normal (Normal)
[2021-04-14] MEDS ORDERED: *HR* HYDROcodone/Acet 7.5/325 mg TABLET PO PRN (11:16)
[2021-04-14] MEDS ORDERED: Ipratropium/Albuterol Neb 3 ML IH PRN (11:16)
[2021-04-14] MEDS ORDERED: Fluticasone Propionate Nasal 50 MCG/SPRAY BOTTLE NS PRN (11:16)
[2021-04-14] MEDS ORDERED: NON-FORMULARY MEDICATION 1 EACH EACH (Insulin Glargine,Hum.Rec.Anlog [Lantus Solostar] 100 SQ PRN (11:16)
[2021-04-14 11:42] LABS: Hematocrit 22.7 % (35.3-44.9); Hemoglobin 7.2 g/dL (11.5-15.4)
[2021-04-14] MEDS ORDERED: tiZANidine 4 MG TABLET PO PRN (11:55)
[2021-04-14] MEDS ORDERED: *HR* Dextrose 50 % in Water (Syg) 50 ML SYRINGE IVP PRN (12:20)
[2021-04-14] MEDS ORDERED: Dextrose Gel 15 GM/37.5 ML TUBE PO PRN ×2 (12:20)
[2021-04-14] MEDS ORDERED: D5% in Water 1,000 ML IVC PRN (12:20)
[2021-04-14] MEDS: allopurinoL 100 MG TABLET PO SCH (12:52)
[2021-04-14] MEDS: FLUoxetine 20 MG CAPSULE PO SCH (12:52)
[2021-04-14] MEDS: Torsemide 20 MG TABLET PO SCH ×2 (12:52→15:50)
[2021-04-14] MEDS: Octreotide 400 MCG in 0.9 % Sodium Chloride 100 ML IVC SCH (14:18)
[2021-04-14] MEDS ORDERED: Iron Sucrose Complex 200 MG in 0.9 % Sodium Chloride 100 ML IVPB ONE (16:52)
[2021-04-14] MEDS: PRAMIPEXOLE 1.5 MG PO SCH (17:02)
[2021-04-14] MEDS: Insulin LISPRO 300 UNITS/3 ML VIAL SUBQ SCH ×2 (17:41→20:44)
[2021-04-14] MEDS: Pregabalin 75 MG CAPSULE PO SCH (20:58)
[2021-04-14] MEDS ORDERED: Nystatin POWDER 30 GM BOTTLE TP SCH (21:45)
[2021-04-15] MEDS: Ampicillin 2,000 MG in 0.9 % Sodium Chloride Mini Bag 100 ML IVPB SCH ×4 (00:24→20:42)
[2021-04-15] MEDS: Nystatin POWDER 30 GM BOTTLE TP SCH ×4 (00:25→20:48)
[2021-04-15 01:27] LABS: Basophils % 0.7 %; Eosinophils # 0.2 K/mcL (0.0-0.6); Eosinophils % 3.2 %; Hematocrit 22.5 % (35.3-44.9); Immature Granulocytes % 0.4 % (0-4); Lymphocytes # 1.3 K/mcL (0.6-4.6); Lymphocytes % 23.8 %; Mean Corpuscular HGB Conc 31.1 g/dL (31.6-35.5); Mean Corpuscular Volume 96.6 fL (83.0-100.0); Mean Platelet Volume 11.5 fL (9.4-12.4); Monocytes # 0.6 K/mcL (0.0-1.3); Monocytes % 9.8 %; Neutrophils # 3.5 K/mcL (1.6-8.9); Platelet Count 189 K/mcL (140-400); Red Blood Count 2.33 M/mcL (3.82-4.97); Red Cell Distribution Width 15.9 % (11.5-14.5); Segmented Neutrophils % 62.1 %; White Blood Count 5.6 K/mcL (4.3-11.1)
[2021-04-15 01:45] LABS: Calcium 8.8 mg/dL (8.6-10.3); Potassium 4.3 mEq/L (3.5-5.1)
[2021-04-15] MEDS: allopurinoL 100 MG TABLET PO SCH (08:00)
[2021-04-15] MEDS: Magnesium Oxide 400 MG TABLET PO SCH (08:00)
[2021-04-15] MEDS: Lactobacillus 1 EACH CAP.SPRINK PO SCH (08:00)
[2021-04-15] MEDS: FLUoxetine 20 MG CAPSULE PO SCH (08:00)
[2021-04-15] MEDS: Multivit/Ca/Min/Fe/FA 1 TAB TABLET PO SCH (08:00)
[2021-04-15] MEDS: Cholecalciferol (D-3) 1,000 UNIT (25MCG) TABLET PO SCH (08:00)
[2021-04-15] MEDS: Torsemide 20 MG TABLET PO SCH ×2 (08:00→16:05)
[2021-04-15] MEDS: Pregabalin 75 MG CAPSULE PO SCH ×2 (08:00→20:47)
[2021-04-15] MEDS: *HR* Acetylcysteine 20% 600 MG/3 ML ORAL SYRINGE PO SCH (08:01)
[2021-04-15] MEDS: Cyanocobalamin (B-12) 1,000 MCG TABLET PO SCH (08:01)
[2021-04-15] MEDS: Insulin LISPRO 300 UNITS/3 ML VIAL SUBQ SCH ×4 (08:03→20:43)
[2021-04-15] MEDS ORDERED: 0.9 % Sodium Chloride 250 ML ONE (10:38)
[2021-04-15 11:42] LABS: Hematocrit 23.4 % (35.3-44.9); Hemoglobin 7.1 g/dL (11.5-15.4)
[2021-04-15 16:44] LABS: Hematocrit 26.2 % (35.3-44.9)
[2021-04-15] MEDS: PRAMIPEXOLE 1.5 MG PO SCH (17:42)
[2021-04-16] MEDS: Ampicillin 2,000 MG in 0.9 % Sodium Chloride Mini Bag 100 ML IVPB SCH ×5 (00:08→23:07)
[2021-04-16 05:30] LABS: Basophils # 0.1 K/mcL (0.0-0.2); Basophils % 1.2 %; Eosinophils # 0.2 K/mcL (0.0-0.6); Eosinophils % 3.6 %; Hematocrit 25.4 % (35.3-44.9); Hemoglobin 7.8 g/dL (11.5-15.4); Immature Granulocytes % 0.4 % (0-4); Lymphocytes # 1.4 K/mcL (0.6-4.6); Lymphocytes % 25.1 %; Mean Corpuscular HGB Conc 30.7 g/dL (31.6-35.5); Mean Corpuscular Hemoglobin 29.3 pg (28.0-33.3); Mean Corpuscular Volume 95.5 fL (83.0-100.0); Mean Platelet Volume 11.8 fL (9.4-12.4); Monocytes # 0.5 K/mcL (0.0-1.3); Monocytes % 9.3 %; Neutrophils # 3.4 K/mcL (1.6-8.9); Platelet Count 193 K/mcL (140-400); Red Blood Count 2.66 M/mcL (3.82-4.97); Red Cell Distribution Width 15.9 % (11.5-14.5); Segmented Neutrophils % 60.4 %; White Blood Count 5.6 K/mcL (4.3-11.1)
[2021-04-16 05:49] LABS: BUN/Creatinine Ratio 25 (6-26); Blood Urea Nitrogen 26 mg/dL (8-23); Calcium 8.6 mg/dL (8.6-10.3); Carbon Dioxide 31 mEq/L (23-29); Chloride 102 mEq/L (98-107); Glucose 134 mg/dL (70-105); Osmolality,Calculated 297 (280-300); Potassium 3.8 mEq/L (3.5-5.1); Sodium 140 mEq/L (136-145); eGFR For African Americans > 60 (> 60); eGFR For Non-African Americans 50 (> 60)
[2021-04-16] MEDS: Insulin LISPRO 300 UNITS/3 ML VIAL SUBQ SCH ×4 (08:16→21:16)
[2021-04-16] MEDS: FLUoxetine 20 MG CAPSULE PO SCH (08:17)
[2021-04-16] MEDS: Torsemide 20 MG TABLET PO SCH ×2 (08:17→16:00)
[2021-04-16] MEDS: Cyanocobalamin (B-12) 1,000 MCG TABLET PO SCH (08:17)
[2021-04-16] MEDS: Multivit/Ca/Min/Fe/FA 1 TAB TABLET PO SCH (08:17)
[2021-04-16] MEDS: Lactobacillus 1 EACH CAP.SPRINK PO SCH (08:17)
[2021-04-16] MEDS: Cholecalciferol (D-3) 1,000 UNIT (25MCG) TABLET PO SCH (08:18)
[2021-04-16] MEDS: Pregabalin 75 MG CAPSULE PO SCH ×2 (08:18→21:22)
[2021-04-16] MEDS: allopurinoL 100 MG TABLET PO SCH (08:18)
[2021-04-16] MEDS: Magnesium Oxide 400 MG TABLET PO SCH (08:19)
[2021-04-16] MEDS: Nystatin POWDER 30 GM BOTTLE TP SCH ×3 (08:20→21:23)
[2021-04-16] MEDS ORDERED: Isovue-370 500 ML BOTTLE IVP ONE (10:57)
[2021-04-16 12:10] LABS: Hematocrit 26.8 % (35.3-44.9); Hemoglobin 8.2 g/dL (11.5-15.4)
[2021-04-16 12:18] LABS: INR 1.1; Prothrombin Time 12.6 Seconds (9.4-12.1)
[2021-04-16] MEDS: *HR* Acetylcysteine 20% 600 MG/3 ML ORAL SYRINGE PO SCH (12:38)
[2021-04-16] MEDS: PRAMIPEXOLE 1.5 MG PO SCH (16:03)
[2021-04-16 18:47] LABS: Hematocrit 27.7 % (35.3-44.9); Hemoglobin 8.6 g/dL (11.5-15.4)
[2021-04-17] MEDS: Ampicillin 2,000 MG in 0.9 % Sodium Chloride Mini Bag 100 ML IVPB SCH (05:36)
[2021-04-17 07:31] LABS: Hematocrit 25.3 % (35.3-44.9); Hemoglobin 7.9 g/dL (11.5-15.4)
[2021-04-17 08:37] LABS: BUN/Creatinine Ratio 21 (6-26); Blood Urea Nitrogen 20 mg/dL (8-23); Calcium 8.5 mg/dL (8.6-10.3); Carbon Dioxide 31 mEq/L (23-29); Chloride 100 mEq/L (98-107); Glucose 124 mg/dL (70-105); Magnesium 1.7 mg/dL (1.6-2.6); Osmolality,Calculated 288 (280-300); Phosphorous 2.5 mg/dL (2.7-4.5); Potassium 3.3 mEq/L (3.5-5.1); Sodium 137 mEq/L (136-145); eGFR For African Americans > 60 (> 60); eGFR For Non-African Americans 57 (> 60)
[2021-04-17] MEDS: Cholecalciferol (D-3) 1,000 UNIT (25MCG) TABLET PO SCH (09:08)
[2021-04-17] MEDS: FLUoxetine 20 MG CAPSULE PO SCH (09:09)
[2021-04-17] MEDS: Pregabalin 75 MG CAPSULE PO SCH ×2 (09:10→19:59)
[2021-04-17] MEDS: Cyanocobalamin (B-12) 1,000 MCG TABLET PO SCH (09:10)
[2021-04-17] MEDS: allopurinoL 100 MG TABLET PO SCH (09:10)
[2021-04-17] MEDS: Lactobacillus 1 EACH CAP.SPRINK PO SCH (09:10)
[2021-04-17] MEDS: Multivit/Ca/Min/Fe/FA 1 TAB TABLET PO SCH (09:11)
[2021-04-17] MEDS: Torsemide 20 MG TABLET PO SCH ×2 (09:11→17:33)
[2021-04-17] MEDS: *HR* Acetylcysteine 20% 600 MG/3 ML ORAL SYRINGE PO SCH (09:12)
[2021-04-17] MEDS: Insulin LISPRO 300 UNITS/3 ML VIAL SUBQ SCH ×4 (12:04→19:58)
[2021-04-17] MEDS: Magnesium Oxide 400 MG TABLET PO SCH (13:07)
[2021-04-17] MEDS: Nystatin POWDER 30 GM BOTTLE TP SCH ×3 (16:17→19:59)
[2021-04-17] MEDS: Lactulose Oral Soln 20 GM/30 ML UDC PO SCH ×2 (16:17→19:58)
[2021-04-17] MEDS: PRAMIPEXOLE 1.5 MG PO SCH (17:34)
[2021-04-18] MEDS: Pregabalin 75 MG CAPSULE PO SCH ×2 (08:30→20:51)
[2021-04-18] MEDS: Insulin LISPRO 300 UNITS/3 ML VIAL SUBQ SCH ×3 (08:30→16:50)
[2021-04-18] MEDS: Cholecalciferol (D-3) 1,000 UNIT (25MCG) TABLET PO SCH (08:31)
[2021-04-18] MEDS: Cyanocobalamin (B-12) 1,000 MCG TABLET PO SCH (08:31)
[2021-04-18] MEDS: Torsemide 20 MG TABLET PO SCH (08:31)
[2021-04-18] MEDS: Magnesium Oxide 400 MG TABLET PO SCH (08:31)
[2021-04-18] MEDS: allopurinoL 100 MG TABLET PO SCH (08:31)
[2021-04-18] MEDS: Multivit/Ca/Min/Fe/FA 1 TAB TABLET PO SCH (08:31)
[2021-04-18] MEDS: Lactobacillus 1 EACH CAP.SPRINK PO SCH (08:31)
[2021-04-18] MEDS: FLUoxetine 20 MG CAPSULE PO SCH (08:32)
[2021-04-18] MEDS: *HR* Acetylcysteine 20% 600 MG/3 ML ORAL SYRINGE PO SCH (08:33)
[2021-04-18] MEDS: Lactulose Oral Soln 20 GM/30 ML UDC PO SCH ×2 (08:33→20:51)
[2021-04-18] MEDS: Nystatin POWDER 30 GM BOTTLE TP SCH ×3 (08:34→21:07)
[2021-04-18] MEDS ORDERED: Torsemide 20 MG TABLET PO SCH (09:27)
[2021-04-18 10:45] LABS: Hematocrit 27.4 % (35.3-44.9); Hemoglobin 8.2 g/dL (11.5-15.4)
[2021-04-18 11:04] LABS: BUN/Creatinine Ratio 22 (6-26); Blood Urea Nitrogen 21 mg/dL (8-23); Calcium 8.9 mg/dL (8.6-10.3); Carbon Dioxide 32 mEq/L (23-29); Chloride 101 mEq/L (98-107); Glucose 156 mg/dL (70-105); Osmolality,Calculated 294 (280-300); Potassium 3.6 mEq/L (3.5-5.1); Sodium 139 mEq/L (136-145); eGFR For African Americans > 60 (> 60); eGFR For Non-African Americans 56 (> 60)
[2021-04-18] MEDS: PRAMIPEXOLE 1.5 MG PO SCH (18:06)
[2021-04-18 19:29] LABS: Adenovirus Not Detected (Not Detect); Bordetella Pertussis Not Detected (Not Detect); Chlamydophila pneumoniae Not Detected (Not Detect); Coronavirus 229E Not Detected (Not Detect); Coronavirus HKU1 Not Detected (Not Detect); Coronavirus NL63 Not Detected (Not Detect); Coronavirus OC43 Not Detected (Not Detect); Human Metapneumovirus Not Detected (Not Detect); Human Rhinovirus/Enterovirus Not Detected (Not Detect); Influenza A Subtype 2009 H1 Not Detected (Not Detect); Influenza B Not Detected (Not Detect); Mycoplasma pneumoniae Not Detected (Not Detect); Parainfluenza Virus 1 Not Detected (Not Detect); Parainfluenza Virus 2 Not Detected (Not Detect); Parainfluenza Virus 3 Not Detected (Not Detect); Parainfluenza Virus 4 Not Detected (Not Detect); Respiratory Syncytial Virus Not Detected (Not Detect); SARS-CoV-2 Not Detected (Not Detect)
[2021-04-19 02:34] VITALS: BP 118/51; PULSE 72; TEMP 98.2; O2SAT 97
== END 2021-04-19 04:26 | disposition critical access hospital (66) ==
LOC: 2NENU → SUATTDRO 17:10
PROVIDERS: ADMIT Family Medicine; ATTEND Internal Medicine

== ENCOUNTER 2021-08-29 22:26 | Inpatient (IN) ==
[2021-08-30] MEDS ORDERED: Ondansetron 4 MG/2 ML VIAL IVP PRN (02:29)
[2021-08-30] MEDS ORDERED: Naloxone 0.4 MG/ML INJ IVP PRN (02:29)
[2021-08-30] MEDS ORDERED: Ipratropium/Albuterol Neb 3 ML IH PRN (02:36)
[2021-08-30] MEDS ORDERED: Dextrose 4 GM Chewable Tablets PO PRN ×2 (03:33)
[2021-08-30] MEDS ORDERED: *HR* Dextrose 50 % in Water (Syg) 50 ML SYRINGE IVP PRN (03:33)
[2021-08-30] MEDS ORDERED: D5% in Water 1,000 ML IVC PRN (03:33)
[2021-08-30 04:04] LABS: Basophils % 0.4 %; Eosinophils % 0.4 %; Hematocrit 29.8 % (35.3-44.9); Hemoglobin 9.8 g/dL (11.5-15.4); Immature Granulocytes % 0.5 % (0-4); Lymphocytes # 1.3 K/mcL (0.6-4.6); Lymphocytes % 15.4 %; Mean Corpuscular HGB Conc 32.9 g/dL (31.6-35.5); Mean Corpuscular Hemoglobin 30.9 pg (28.0-33.3); Mean Platelet Volume 11.8 fL (9.4-12.4); Monocytes # 0.9 K/mcL (0.0-1.3); Monocytes % 10.2 %; Neutrophils # 6.3 K/mcL (1.6-8.9); Platelet Count 168 K/mcL (140-400); Red Blood Count 3.17 M/mcL (3.82-4.97); Red Cell Distribution Width 16.4 % (11.5-14.5); Segmented Neutrophils % 73.1 %
[2021-08-30 04:05] LABS: White Blood Count 8.6 K/mcL (4.3-11.1)
[2021-08-30 04:15] LABS: Estimated Average Glucose 134 mg/dl; Hemoglobin A1C 6.3 %
[2021-08-30 04:24] LABS: INR 1.2; Prothrombin Time 13.3 Seconds (9.4-12.1)
[2021-08-30 04:32] LABS: Albumin 3.8 g/dL (3.5-5.7); Albumin/Globulin Ratio 1.2 (1.1-2.2); Bilirubin,Direct 0.3 mg/dL (0.0-0.2); Bilirubin,Total 1.3 mg/dL (0.3-1.0); Calcium 9.2 mg/dL (8.6-10.3); Globulin 3.2 g/dL (2.4-3.5); Magnesium 1.9 mg/dL (1.6-2.6); Phosphorous 3.6 mg/dL (2.7-4.5); Potassium 2.8 mEq/L (3.5-5.1); Troponin I 0.03 ng/mL (< 0.04)
[2021-08-30 04:39] LABS: Adenovirus Not Detected (Not Detect); Bordetella Pertussis Not Detected (Not Detect); Chlamydophila pneumoniae Not Detected (Not Detect); Coronavirus 229E Not Detected (Not Detect); Coronavirus HKU1 Not Detected (Not Detect); Coronavirus NL63 Not Detected (Not Detect); Coronavirus OC43 Not Detected (Not Detect); Human Metapneumovirus Not Detected (Not Detect); Human Rhinovirus/Enterovirus Not Detected (Not Detect); Influenza A Subtype 2009 H1 Not Detected (Not Detect); Influenza B Not Detected (Not Detect); Mycoplasma pneumoniae Not Detected (Not Detect); Parainfluenza Virus 1 Not Detected (Not Detect); Parainfluenza Virus 2 Not Detected (Not Detect); Parainfluenza Virus 3 Not Detected (Not Detect); Parainfluenza Virus 4 Not Detected (Not Detect); Respiratory Syncytial Virus Not Detected (Not Detect); SARS-CoV-2 Not Detected (Not Detect)
[2021-08-30 04:45] LABS: Thyroid Stimulating Hormone 0.537 mcIU/mL (0.340-5.600)
[2021-08-30] MEDS: 0.9 % Sodium Chloride 1,000 ML IVC SCH ×2 (06:50→17:32)
[2021-08-30] MEDS: Insulin LISPRO 300 UNITS/3 ML VIAL SUBQ SCH ×3 (07:35→17:02)
[2021-08-30 16:54] LABS: Calcium 9.2 mg/dL (8.6-10.3); Potassium 3.4 mEq/L (3.5-5.1)
[2021-08-30] MEDS ORDERED: tiZANidine 4 MG TABLET PO PRN (18:41)
[2021-08-30] MEDS ORDERED: PRAMIPEXOLE DI HCL 1.5 MG PO SCH (21:00)
[2021-08-30] MEDS: Pregabalin 75 MG CAPSULE PO SCH (21:31)
[2021-08-31] MEDS: 0.9 % Sodium Chloride 1,000 ML IVC SCH (03:56)
[2021-08-31] MEDS: *HR* HYDROcodone/Acet 5/325 mg TABLET PO PRN ×2 (04:01→19:49)
[2021-08-31] MEDS: Insulin LISPRO 300 UNITS/3 ML VIAL SUBQ SCH ×3 (08:30→17:39)
[2021-08-31] MEDS: FLUoxetine 20 MG CAPSULE PO SCH (08:31)
[2021-08-31] MEDS: Lactulose Oral Soln 20 GM/30 ML UDC PO SCH (08:31)
[2021-08-31] MEDS: Pregabalin 75 MG CAPSULE PO SCH ×2 (08:31→19:43)
[2021-08-31] MEDS: allopurinoL 100 MG TABLET PO SCH (08:31)
[2021-08-31] MEDS ORDERED: PRAMIPEXOLE 1.5 MG PO SCH (09:00)
[2021-08-31] MEDS: Piperacillin/Tazobactam 3.375 GM in 0.9 % Sodium Chloride Mini Bag 100 ML IVPB SCH ×3 (09:40→23:34)
[2021-08-31 09:43] LABS: Eosinophils # 0.1 K/mcL (0.0-0.6); Hematocrit 30.5 % (35.3-44.9); Hemoglobin 9.7 g/dL (11.5-15.4); Mean Corpuscular HGB Conc 31.8 g/dL (31.6-35.5); Mean Corpuscular Hemoglobin 30.8 pg (28.0-33.3); Mean Corpuscular Volume 96.8 fL (83.0-100.0); Mean Platelet Volume 12.8 fL (9.4-12.4); Platelet Count 154 K/mcL (140-400); Red Blood Count 3.15 M/mcL (3.82-4.97); Red Cell Distribution Width 16.5 % (11.5-14.5)
[2021-08-31 09:45] LABS: White Blood Count 4.1 K/mcL (4.3-11.1)
[2021-08-31 10:00] LABS: Lymphocytes # 1.5 K/mcL (0.6-4.6); Monocytes # 0.4 K/mcL (0.0-1.3); Neutrophils # 2.1 K/mcL (1.6-8.9); Platelet Estimate Normal (Normal)
[2021-08-31 10:01] LABS: Anisocytosis 1+ (Not Present)
[2021-08-31 10:07] LABS: % Iron Saturation 6 % (15-50); Calcium 8.8 mg/dL (8.6-10.3); Iron 22 mcg/dL (50-170); Potassium 3.9 mEq/L (3.5-5.1); Transferrin 280 mg/dL (203-362)
[2021-08-31 10:30] LABS: Folate 17.6 ng/mL (3.0-16.0)
[2021-08-31 12:09] LABS: Ferritin 53 ng/mL (10-120)
[2021-08-31] MEDS ORDERED: Iron Sucrose Complex 200 MG in 0.9 % Sodium Chloride 100 ML IVPB ONE (14:00)
[2021-08-31] MEDS: PRAMIPEXOLE 1.5 MG PO SCH (17:39)
[2021-08-31] MEDS: Lactobacillus 1 EACH CAP.SPRINK PO SCH (19:42)
[2021-09-01 02:47] LABS: Basophils % 0.6 %; Eosinophils # 0.2 K/mcL (0.0-0.6); Hematocrit 30.7 % (35.3-44.9); Hemoglobin 10.1 g/dL (11.5-15.4); Immature Granulocytes % 0.2 % (0-4); Lymphocytes # 1.2 K/mcL (0.6-4.6); Lymphocytes % 26.2 %; Mean Corpuscular HGB Conc 32.9 g/dL (31.6-35.5); Mean Corpuscular Hemoglobin 31.9 pg (28.0-33.3); Mean Corpuscular Volume 96.8 fL (83.0-100.0); Mean Platelet Volume 12.3 fL (9.4-12.4); Monocytes # 0.7 K/mcL (0.0-1.3); Monocytes % 15.2 %; Neutrophils # 2.6 K/mcL (1.6-8.9); Platelet Count 171 K/mcL (140-400); Red Blood Count 3.17 M/mcL (3.82-4.97); Red Cell Distribution Width 16.3 % (11.5-14.5); Segmented Neutrophils % 53.8 %; White Blood Count 4.7 K/mcL (4.3-11.1)
[2021-09-01 03:06] LABS: Calcium 9.2 mg/dL (8.6-10.3); Magnesium 2.1 mg/dL (1.6-2.6); Potassium 4.4 mEq/L (3.5-5.1)
[2021-09-01] MEDS: Insulin LISPRO 300 UNITS/3 ML VIAL SUBQ SCH ×3 (07:40→17:05)
[2021-09-01] MEDS: FLUoxetine 20 MG CAPSULE PO SCH (08:36)
[2021-09-01] MEDS: allopurinoL 100 MG TABLET PO SCH (08:37)
[2021-09-01] MEDS: Lactulose Oral Soln 20 GM/30 ML UDC PO SCH (08:37)
[2021-09-01] MEDS: Lactobacillus 1 EACH CAP.SPRINK PO SCH ×2 (08:37→20:41)
[2021-09-01] MEDS: Pregabalin 75 MG CAPSULE PO SCH ×2 (08:37→20:41)
[2021-09-01] MEDS: Piperacillin/Tazobactam 3.375 GM in 0.9 % Sodium Chloride Mini Bag 100 ML IVPB SCH ×2 (08:38→17:04)
[2021-09-01] MEDS: *HR* HYDROcodone/Acet 5/325 mg TABLET PO PRN (08:48)
[2021-09-01] MEDS: PRAMIPEXOLE 1.5 MG PO SCH (17:06)
[2021-09-01] MEDS: *HR* Heparin 5,000 UNIT/ML VIAL SQ SCH (20:41)
[2021-09-02] MEDS: Piperacillin/Tazobactam 3.375 GM in 0.9 % Sodium Chloride Mini Bag 100 ML IVPB SCH ×3 (01:05→16:11)
[2021-09-02] MEDS: *HR* HYDROcodone/Acet 5/325 mg TABLET PO PRN ×2 (01:36→18:18)
[2021-09-02 01:40] LABS: Hemoglobin 9.5 g/dL (11.5-15.4); Red Cell Distribution Width 16.2 % (11.5-14.5)
[2021-09-02 01:42] LABS: Basophils % 0.7 %; Eosinophils # 0.2 K/mcL (0.0-0.6); Eosinophils % 2.8 %; Hematocrit 29.8 % (35.3-44.9); Immature Granulocytes % 0.3 % (0-4); Immature Platelets 6.8 % (1.1-6.1); Lymphocytes # 1.3 K/mcL (0.6-4.6); Lymphocytes % 21.9 %; Mean Corpuscular HGB Conc 31.9 g/dL (31.6-35.5); Mean Corpuscular Hemoglobin 30.7 pg (28.0-33.3); Mean Corpuscular Volume 96.4 fL (83.0-100.0); Mean Platelet Volume 12.4 fL (9.4-12.4); Monocytes # 0.9 K/mcL (0.0-1.3); Monocytes % 15.8 %; Neutrophils # 3.4 K/mcL (1.6-8.9); Platelet Count 144 K/mcL (140-400); Red Blood Count 3.09 M/mcL (3.82-4.97); Segmented Neutrophils % 58.5 %; White Blood Count 5.8 K/mcL (4.3-11.1)
[2021-09-02 01:54] LABS: Calcium 9.1 mg/dL (8.6-10.3); Magnesium 1.9 mg/dL (1.6-2.6); Potassium 4.3 mEq/L (3.5-5.1)
[2021-09-02] MEDS: *HR* Heparin 5,000 UNIT/ML VIAL SQ SCH ×3 (06:00→21:13)
[2021-09-02] MEDS: Insulin LISPRO 300 UNITS/3 ML VIAL SUBQ SCH ×3 (08:57→17:20)
[2021-09-02] MEDS: Lactulose Oral Soln 20 GM/30 ML UDC PO SCH (09:07)
[2021-09-02] MEDS: Lactobacillus 1 EACH CAP.SPRINK PO SCH ×2 (09:08→21:14)
[2021-09-02] MEDS: FLUoxetine 20 MG CAPSULE PO SCH (09:08)
[2021-09-02] MEDS: allopurinoL 100 MG TABLET PO SCH (09:08)
[2021-09-02] MEDS: Pregabalin 75 MG CAPSULE PO SCH ×2 (09:08→21:14)
[2021-09-02] MEDS: Furosemide 40 MG/4 ML VIAL IVP SCH (09:08)
[2021-09-02] MEDS: Ipratropium/Albuterol Neb 3 ML IH SCH ×3 (10:20→19:56)
[2021-09-02] MEDS ORDERED: Nystatin POWDER 30 GM BOTTLE TP PRN (12:28)
[2021-09-02] MEDS: DAPTOmycin 500 MG in 0.9 % Sodium Chloride 100 ML IVPB SCH (12:43)
[2021-09-02] MEDS: PRAMIPEXOLE 1.5 MG PO SCH ×2 (17:51→18:18)
[2021-09-03] MEDS: Piperacillin/Tazobactam 3.375 GM in 0.9 % Sodium Chloride Mini Bag 100 ML IVPB SCH ×3 (00:05→17:48)
[2021-09-03] MEDS: Ipratropium/Albuterol Neb 3 ML IH SCH ×4 (05:07→20:12)
[2021-09-03 05:08] LABS: Basophils % 0.7 %; Eosinophils # 0.2 K/mcL (0.0-0.6); Hematocrit 26.8 % (35.3-44.9); Hemoglobin 8.7 g/dL (11.5-15.4); Immature Granulocytes % 0.2 % (0-4); Lymphocytes # 1.5 K/mcL (0.6-4.6); Lymphocytes % 33.7 %; Mean Corpuscular HGB Conc 32.5 g/dL (31.6-35.5); Mean Corpuscular Hemoglobin 31.8 pg (28.0-33.3); Mean Corpuscular Volume 97.8 fL (83.0-100.0); Mean Platelet Volume 11.8 fL (9.4-12.4); Monocytes # 0.6 K/mcL (0.0-1.3); Monocytes % 13.9 %; Neutrophils # 2.2 K/mcL (1.6-8.9); Platelet Count 156 K/mcL (140-400); Red Blood Count 2.74 M/mcL (3.82-4.97); Segmented Neutrophils % 47.5 %; White Blood Count 4.5 K/mcL (4.3-11.1)
[2021-09-03] MEDS: *HR* Heparin 5,000 UNIT/ML VIAL SQ SCH ×3 (05:11→21:10)
[2021-09-03 05:28] LABS: Calcium 8.8 mg/dL (8.6-10.3); Magnesium 1.6 mg/dL (1.6-2.6); Potassium 3.5 mEq/L (3.5-5.1)
[2021-09-03] MEDS: Insulin LISPRO 300 UNITS/3 ML VIAL SUBQ SCH ×3 (07:30→16:43)
[2021-09-03] MEDS: Aspirin Enteric Coated 81 MG Tablet PO SCH (08:00)
[2021-09-03] MEDS: Pregabalin 75 MG CAPSULE PO SCH ×2 (08:00→21:10)
[2021-09-03] MEDS: Cholecalciferol (D-3) 1,000 UNIT (25MCG) TABLET PO SCH (08:00)
[2021-09-03] MEDS: Furosemide 40 MG/4 ML VIAL IVP SCH (08:00)
[2021-09-03] MEDS: FLUoxetine 20 MG CAPSULE PO SCH (08:00)
[2021-09-03] MEDS: Ascorbic Acid 500 MG TABLET PO SCH (08:00)
[2021-09-03] MEDS: allopurinoL 100 MG TABLET PO SCH (08:00)
[2021-09-03] MEDS: Lactulose Oral Soln 20 GM/30 ML UDC PO SCH (08:00)
[2021-09-03] MEDS: Lactobacillus 1 EACH CAP.SPRINK PO SCH ×3 (08:00→21:09)
[2021-09-03] MEDS: Cyanocobalamin (B-12) 1,000 MCG TABLET PO SCH (08:00)
[2021-09-03] MEDS ORDERED: Lidocaine 1% 20 ML MDV ONE (10:29)
[2021-09-03] MEDS: Ringers Solution, Lactated 1,000 ML IVC SCH (10:54)
[2021-09-03] MEDS: CeFAZolin Syr 2,000MG/20 ML 2,000 MG/20 ML SYRINGE IVPB ONE ×2 (11:20→13:11)
[2021-09-03] MEDS ORDERED: *HR* Propofol 200 MG/20 ML VIAL IVP ONE (11:31)
[2021-09-03] MEDS ORDERED: *HR* FentaNYL (PF) 100 MCG/2 ML VIAL ONE (11:32)
[2021-09-03] MEDS ORDERED: Ketamine HCL *QUVA* 50mg (1mL) SYRINGE ONE (12:15)
[2021-09-03] MEDS ORDERED: Lidocaine -MPF 2% 5 ML VIAL ONE (12:20)
[2021-09-03] MEDS: DAPTOmycin 500 MG in 0.9 % Sodium Chloride 100 ML IVPB SCH (14:24)
[2021-09-03] MEDS: *HR* HYDROcodone/Acet 5/325 mg TABLET PO PRN ×2 (15:07→21:09)
[2021-09-03] MEDS: PRAMIPEXOLE 1.5 MG PO SCH (17:55)
[2021-09-04] MEDS: Piperacillin/Tazobactam 3.375 GM in 0.9 % Sodium Chloride Mini Bag 100 ML IVPB SCH ×3 (00:56→17:43)
[2021-09-04 03:24] LABS: Basophils % 0.7 %; Eosinophils # 0.2 K/mcL (0.0-0.6); Hematocrit 26.3 % (35.3-44.9); Hemoglobin 8.6 g/dL (11.5-15.4); Immature Granulocytes % 0.5 % (0-4); Lymphocytes # 1.1 K/mcL (0.6-4.6); Lymphocytes % 26.7 %; Mean Corpuscular HGB Conc 32.7 g/dL (31.6-35.5); Mean Corpuscular Hemoglobin 31.5 pg (28.0-33.3); Mean Corpuscular Volume 96.3 fL (83.0-100.0); Mean Platelet Volume 11.6 fL (9.4-12.4); Monocytes # 0.5 K/mcL (0.0-1.3); Monocytes % 12.1 %; Neutrophils # 2.2 K/mcL (1.6-8.9); Platelet Count 167 K/mcL (140-400); Red Blood Count 2.73 M/mcL (3.82-4.97); Red Cell Distribution Width 15.9 % (11.5-14.5)
[2021-09-04 03:40] LABS: Magnesium 1.7 mg/dL (1.6-2.6); Potassium 4.3 mEq/L (3.5-5.1)
[2021-09-04] MEDS: Ipratropium/Albuterol Neb 3 ML IH SCH ×4 (04:13→21:15)
[2021-09-04] MEDS: *HR* Heparin 5,000 UNIT/ML VIAL SQ SCH ×3 (04:49→19:39)
[2021-09-04] MEDS: Insulin LISPRO 300 UNITS/3 ML VIAL SUBQ SCH ×3 (07:23→17:45)
[2021-09-04] MEDS: Lactobacillus 1 EACH CAP.SPRINK PO SCH ×2 (07:40→22:52)
[2021-09-04] MEDS: Lactulose Oral Soln 20 GM/30 ML UDC PO SCH (07:40)
[2021-09-04] MEDS: Cholecalciferol (D-3) 1,000 UNIT (25MCG) TABLET PO SCH (07:41)
[2021-09-04] MEDS: Ascorbic Acid 500 MG TABLET PO SCH (07:41)
[2021-09-04] MEDS: allopurinoL 100 MG TABLET PO SCH (07:41)
[2021-09-04] MEDS: Cyanocobalamin (B-12) 1,000 MCG TABLET PO SCH (07:41)
[2021-09-04] MEDS: FLUoxetine 20 MG CAPSULE PO SCH (07:41)
[2021-09-04] MEDS: Pregabalin 75 MG CAPSULE PO SCH ×2 (07:41→19:33)
[2021-09-04] MEDS: Aspirin Enteric Coated 81 MG Tablet PO SCH (07:41)
[2021-09-04] MEDS: Furosemide 40 MG/4 ML VIAL IVP SCH (07:41)
[2021-09-04] MEDS: Ringers Solution, Lactated 1,000 ML IVC SCH (10:36)
[2021-09-04] MEDS: *HR* HYDROcodone/Acet 5/325 mg TABLET PO PRN ×2 (12:26→19:33)
[2021-09-04 14:16] LABS: Bilirubin,Urine Negative (Negative); Blood,Urine Negative (Negative); Clarity,Urine Clear (Clear); Color,Urine Light-Yellow (Yellow); Glucose,Urine (UA) Normal (Normal); Ketones,Urine Negative (Negative); Leukocyte Esterase,Urine Negative (Negative); Nitrite,Urine Negative (Negative); Protein,Urine Negative (Neg-Trace); Specific Gravity,Urine 1.013 (1.010-1.025); Urobilinogen,Urine Normal (Normal)
[2021-09-04] MEDS: PRAMIPEXOLE 1.5 MG PO SCH (17:45)
[2021-09-05] MEDS: Piperacillin/Tazobactam 3.375 GM in 0.9 % Sodium Chloride Mini Bag 100 ML IVPB SCH ×3 (00:14→16:40)
[2021-09-05] MEDS: Ipratropium/Albuterol Neb 3 ML IH SCH ×4 (04:20→19:47)
[2021-09-05] MEDS: *HR* Heparin 5,000 UNIT/ML VIAL SQ SCH ×3 (04:55→21:02)
[2021-09-05 05:22] LABS: Eosinophils # 0.3 K/mcL (0.0-0.6); Eosinophils % 7.4 %; Hematocrit 27.7 % (35.3-44.9); Immature Granulocytes % 0.5 % (0-4); Lymphocytes # 1.4 K/mcL (0.6-4.6); Lymphocytes % 34.7 %; Mean Corpuscular HGB Conc 32.5 g/dL (31.6-35.5); Mean Corpuscular Hemoglobin 31.9 pg (28.0-33.3); Mean Corpuscular Volume 98.2 fL (83.0-100.0); Mean Platelet Volume 11.2 fL (9.4-12.4); Monocytes # 0.5 K/mcL (0.0-1.3); Monocytes % 12.1 %; Neutrophils # 1.8 K/mcL (1.6-8.9); Platelet Count 190 K/mcL (140-400); Red Blood Count 2.82 M/mcL (3.82-4.97); Red Cell Distribution Width 15.9 % (11.5-14.5); Segmented Neutrophils % 44.3 %
[2021-09-05 05:40] LABS: Calcium 9.3 mg/dL (8.6-10.3); Magnesium 1.8 mg/dL (1.6-2.6); Potassium 3.8 mEq/L (3.5-5.1)
[2021-09-05] MEDS: Insulin LISPRO 300 UNITS/3 ML VIAL SUBQ SCH ×3 (08:16→16:34)
[2021-09-05] MEDS: Cyanocobalamin (B-12) 1,000 MCG TABLET PO SCH (09:08)
[2021-09-05] MEDS: Cholecalciferol (D-3) 1,000 UNIT (25MCG) TABLET PO SCH (09:08)
[2021-09-05] MEDS: Ascorbic Acid 500 MG TABLET PO SCH (09:08)
[2021-09-05] MEDS: Pregabalin 75 MG CAPSULE PO SCH ×2 (09:08→21:03)
[2021-09-05] MEDS: Lactobacillus 1 EACH CAP.SPRINK PO SCH ×2 (09:08→21:03)
[2021-09-05] MEDS: Spironolactone 25 MG TABLET PO SCH (09:09)
[2021-09-05] MEDS: Aspirin Enteric Coated 81 MG Tablet PO SCH (09:09)
[2021-09-05] MEDS: allopurinoL 100 MG TABLET PO SCH (09:09)
[2021-09-05] MEDS: Lactulose Oral Soln 20 GM/30 ML UDC PO SCH (09:10)
[2021-09-05] MEDS: FLUoxetine 20 MG CAPSULE PO SCH (09:11)
[2021-09-05] MEDS ORDERED: Simethicone 80 MG TAB.CHEW PO PRN (10:55)
[2021-09-05] MEDS: PRAMIPEXOLE 1.5 MG PO SCH (16:43)
[2021-09-06] MEDS: Piperacillin/Tazobactam 3.375 GM in 0.9 % Sodium Chloride Mini Bag 100 ML IVPB SCH ×3 (01:32→17:36)
[2021-09-06] MEDS: Ipratropium/Albuterol Neb 3 ML IH SCH ×4 (03:19→19:43)
[2021-09-06] MEDS: *HR* Heparin 5,000 UNIT/ML VIAL SQ SCH ×3 (05:05→20:15)
[2021-09-06 05:26] LABS: Basophils # 0.1 K/mcL (0.0-0.2); Basophils % 1.2 %; Eosinophils # 0.3 K/mcL (0.0-0.6); Hematocrit 28.5 % (35.3-44.9); Immature Granulocytes % 0.7 % (0-4); Lymphocytes # 1.2 K/mcL (0.6-4.6); Lymphocytes % 26.9 %; Mean Corpuscular HGB Conc 31.6 g/dL (31.6-35.5); Mean Corpuscular Hemoglobin 31.6 pg (28.0-33.3); Mean Platelet Volume 11.3 fL (9.4-12.4); Monocytes # 0.5 K/mcL (0.0-1.3); Monocytes % 10.7 %; Neutrophils # 2.4 K/mcL (1.6-8.9); Platelet Count 207 K/mcL (140-400); Red Blood Count 2.85 M/mcL (3.82-4.97); Red Cell Distribution Width 15.9 % (11.5-14.5); Segmented Neutrophils % 54.5 %; White Blood Count 4.3 K/mcL (4.3-11.1)
[2021-09-06 05:48] LABS: Albumin 3.2 g/dL (3.5-5.7); Albumin/Globulin Ratio 0.9 (1.1-2.2); Bilirubin,Direct 0.1 mg/dL (0.0-0.2); Bilirubin,Indirect 0.5 mg/dL (0.0-1.0); Bilirubin,Total 0.6 mg/dL (0.3-1.0); Calcium 9.2 mg/dL (8.6-10.3); Globulin 3.7 g/dL (2.4-3.5); Magnesium 1.8 mg/dL (1.6-2.6); Potassium 4.2 mEq/L (3.5-5.1); Total Protein 6.9 g/dL (6.4-8.9)
[2021-09-06] MEDS: Insulin LISPRO 300 UNITS/3 ML VIAL SUBQ SCH ×3 (08:36→17:37)
[2021-09-06] MEDS: Spironolactone 25 MG TABLET PO SCH (09:42)
[2021-09-06] MEDS: allopurinoL 100 MG TABLET PO SCH (09:42)
[2021-09-06] MEDS: Lactobacillus 1 EACH CAP.SPRINK PO SCH ×2 (09:42→20:15)
[2021-09-06] MEDS: Lactulose Oral Soln 20 GM/30 ML UDC PO SCH (09:42)
[2021-09-06] MEDS: Pregabalin 75 MG CAPSULE PO SCH ×2 (09:42→20:15)
[2021-09-06] MEDS: Cholecalciferol (D-3) 1,000 UNIT (25MCG) TABLET PO SCH (09:42)
[2021-09-06] MEDS: Ascorbic Acid 500 MG TABLET PO SCH (09:42)
[2021-09-06] MEDS: Cyanocobalamin (B-12) 1,000 MCG TABLET PO SCH (09:42)
[2021-09-06] MEDS: FLUoxetine 20 MG CAPSULE PO SCH (09:43)
[2021-09-06] MEDS: Aspirin Enteric Coated 81 MG Tablet PO SCH (09:43)
[2021-09-06] MEDS: *HR* HYDROcodone/Acet 5/325 mg TABLET PO PRN (15:57)
[2021-09-06] MEDS: PRAMIPEXOLE 1.5 MG PO SCH (17:39)
[2021-09-07] MEDS: Piperacillin/Tazobactam 3.375 GM in 0.9 % Sodium Chloride Mini Bag 100 ML IVPB SCH ×2 (00:38→09:24)
[2021-09-07] MEDS: Ipratropium/Albuterol Neb 3 ML IH SCH ×3 (04:01→15:39)
[2021-09-07] MEDS: *HR* Heparin 5,000 UNIT/ML VIAL SQ SCH ×2 (05:10→13:05)
[2021-09-07] MEDS: Insulin LISPRO 300 UNITS/3 ML VIAL SUBQ SCH ×2 (07:16→12:27)
[2021-09-07] MEDS: Lactulose Oral Soln 20 GM/30 ML UDC PO SCH (09:23)
[2021-09-07] MEDS: Cholecalciferol (D-3) 1,000 UNIT (25MCG) TABLET PO SCH (09:24)
[2021-09-07] MEDS: Spironolactone 25 MG TABLET PO SCH (09:24)
[2021-09-07] MEDS: allopurinoL 100 MG TABLET PO SCH (09:24)
[2021-09-07] MEDS: Cyanocobalamin (B-12) 1,000 MCG TABLET PO SCH (09:24)
[2021-09-07] MEDS: FLUoxetine 20 MG CAPSULE PO SCH (09:24)
[2021-09-07] MEDS: Ascorbic Acid 500 MG TABLET PO SCH (09:24)
[2021-09-07] MEDS: Aspirin Enteric Coated 81 MG Tablet PO SCH (09:24)
[2021-09-07] MEDS: Pregabalin 75 MG CAPSULE PO SCH (09:24)
[2021-09-07] MEDS: Lactobacillus 1 EACH CAP.SPRINK PO SCH (09:24)
[2021-09-07] MEDS ORDERED: Furosemide 40 MG/4 ML VIAL IVP SCH (09:30)
[2021-09-07] MEDS ORDERED: metOLazone 2.5 MG TABLET PO SCH (09:30)
[2021-09-07 12:17] VITALS: BP 116/74; PULSE 85; TEMP 98.3; O2SAT 95
[2021-09-07 13:38] LABS: Adenovirus Not Detected (Not Detect); Bordetella Pertussis Not Detected (Not Detect); Chlamydophila pneumoniae Not Detected (Not Detect); Coronavirus 229E Not Detected (Not Detect); Coronavirus HKU1 Not Detected (Not Detect); Coronavirus NL63 Not Detected (Not Detect); Coronavirus OC43 Not Detected (Not Detect); Human Metapneumovirus Not Detected (Not Detect); Human Rhinovirus/Enterovirus Not Detected (Not Detect); Influenza A Subtype 2009 H1 Not Detected (Not Detect); Influenza B Not Detected (Not Detect); Mycoplasma pneumoniae Not Detected (Not Detect); Parainfluenza Virus 1 Not Detected (Not Detect); Parainfluenza Virus 2 Not Detected (Not Detect); Parainfluenza Virus 3 Not Detected (Not Detect); Parainfluenza Virus 4 Not Detected (Not Detect); Respiratory Syncytial Virus Not Detected (Not Detect); SARS-CoV-2 Not Detected (Not Detect)
== END 2021-09-07 15:42 | disposition other institution (70) | DRG 617 ==
LOC: 2ANU → SUATTDRO 08-30 01:16
PROVIDERS: ADMIT Internal Medicine; ATTEND Internal Medicine

== ENCOUNTER 2021-10-14 22:14 | Inpatient (IN) ==
[2021-10-15] MEDS ORDERED: Ondansetron 4 MG/2 ML VIAL IVP PRN (00:38)
[2021-10-15] MEDS ORDERED: Melatonin 3 MG TABLET PO PRN (00:38)
[2021-10-15] MEDS ORDERED: Naloxone 0.4 MG/ML INJ IVP PRN (00:38)
[2021-10-15 01:21] LABS: VBG HCO3 31 mEq/L (21-27); VBG PCO2 51 mmHg (41-51); VBG PO2 67 mmHg (25-50)
[2021-10-15] MEDS ORDERED: Dextrose 4 GM Chewable Tablets PO PRN ×4 (01:25→20:43)
[2021-10-15] MEDS ORDERED: D5% in Water 1,000 ML IVC PRN ×2 (01:25→20:43)
[2021-10-15] MEDS ORDERED: *HR* Dextrose 50 % in Water (Syg) 50 ML SYRINGE IVP PRN ×2 (01:25→20:43)
[2021-10-15 01:30] LABS: Basophils % 0.3 %; Eosinophils % 0.1 %; Hematocrit 34.9 % (35.3-44.9); Hemoglobin 11.6 g/dL (11.5-15.4); Immature Granulocytes % 0.3 % (0-4); Lymphocytes # 1.2 K/mcL (0.6-4.6); Lymphocytes % 10.2 %; Mean Corpuscular HGB Conc 33.2 g/dL (31.6-35.5); Mean Corpuscular Hemoglobin 31.6 pg (28.0-33.3); Mean Corpuscular Volume 95.1 fL (83.0-100.0); Mean Platelet Volume 12.3 fL (9.4-12.4); Monocytes # 0.9 K/mcL (0.0-1.3); Monocytes % 7.6 %; Neutrophils # 9.7 K/mcL (1.6-8.9); Platelet Count 184 K/mcL (140-400); Red Blood Count 3.67 M/mcL (3.82-4.97); Red Cell Distribution Width 14.5 % (11.5-14.5); Segmented Neutrophils % 81.5 %; White Blood Count 11.9 K/mcL (4.3-11.1)
[2021-10-15 01:37] LABS: Acetaminophen < 10 mcg/mL (10-20); Calcium 10.4 mg/dL (8.6-10.3); Magnesium 2.1 mg/dL (1.6-2.6); Phosphorous 3.2 mg/dL (2.7-4.5); Potassium 3.4 mEq/L (3.5-5.1); Salicylate < 2.5 mg/dL (15.0-30.0)
[2021-10-15 01:47] LABS: Amphetamine Screen,Urine Negative ng/mL (Cutoff=1000); Barbiturate Screen,Urine Negative ng/mL (Cutoff=200); Benzodiazepines Screen,Urine Negative ng/mL (Cutoff=200); Cannabinoid Screen,Urine Negative ng/mL (Cutoff = 50); Cocaine Screen,Urine Negative ng/mL (Cutoff= 300); Opiate Screen,Urine Negative ng/mL (Cutoff=300); Phencyclidine Screen,Urine Negative ng/mL (Cutoff=25)
[2021-10-15 01:54] LABS: Thyroid Stimulating Hormone 0.089 mcIU/mL (0.340-5.600)
[2021-10-15 02:04] LABS: INR 1.2
[2021-10-15 02:06] LABS: Activated Partial Thrombo Time 30.2 Seconds (26.0-36.0)
[2021-10-15] MEDS: Acetaminophen 325 MG TABLET PO PRN (02:35)
[2021-10-15 03:43] LABS: Troponin I < 0.03 ng/mL (< 0.04)
[2021-10-15 05:02] LABS: Adenovirus Not Detected (Not Detect); Bordetella Pertussis Not Detected (Not Detect); Chlamydophila pneumoniae Not Detected (Not Detect); Coronavirus 229E Not Detected (Not Detect); Coronavirus HKU1 Not Detected (Not Detect); Coronavirus NL63 Not Detected (Not Detect); Coronavirus OC43 Not Detected (Not Detect); Human Metapneumovirus Not Detected (Not Detect); Human Rhinovirus/Enterovirus Not Detected (Not Detect); Influenza A Subtype 2009 H1 Not Detected (Not Detect); Influenza B Not Detected (Not Detect); Mycoplasma pneumoniae Not Detected (Not Detect); Parainfluenza Virus 1 Not Detected (Not Detect); Parainfluenza Virus 2 Not Detected (Not Detect); Parainfluenza Virus 3 Not Detected (Not Detect); Parainfluenza Virus 4 Not Detected (Not Detect); Respiratory Syncytial Virus Not Detected (Not Detect); SARS-CoV-2 Not Detected (Not Detect)
[2021-10-15] MEDS: *HR* Heparin 5,000 UNIT/ML VIAL SQ SCH ×3 (06:04→20:56)
[2021-10-15 08:39] LABS: Folate > 22.3 ng/mL (3.0-16.0); Vitamin B12 1240 pg/mL (250-1100)
[2021-10-15] MEDS ORDERED: Torsemide 20 MG TABLET PO SCH (09:00)
[2021-10-15] MEDS: cefTRIAXone 2,000 MG in 0.9 % Sodium Chloride 20 ML IVP SCH (09:21)
[2021-10-15] MEDS: Insulin LISPRO 300 UNITS/3 ML VIAL SUBQ SCH ×4 (09:21→20:57)
[2021-10-15] MEDS: allopurinoL 100 MG TABLET PO SCH (09:22)
[2021-10-15] MEDS: Aspirin Enteric Coated 81 MG Tablet PO SCH (09:22)
[2021-10-15] MEDS: predniSONE 20 MG TABLET PO SCH (09:22)
[2021-10-15] MEDS: FLUoxetine 20 MG CAPSULE PO SCH (09:22)
[2021-10-15] MEDS: Lactobacillus 1 EACH CAP.SPRINK PO SCH ×2 (09:23→20:01)
[2021-10-15] MEDS: *HR* Acetylcysteine 20% 600 MG/3 ML ORAL SYRINGE PO SCH (09:27)
[2021-10-15 09:31] LABS: C-Reactive Protein 38 mg/L (Less than 10)
[2021-10-15] MEDS: Budesonide/Formoterol 160/4.5 1 PUFF INH IH SCH ×2 (11:08→21:24)
[2021-10-15] MEDS: Ipratropium/Albuterol Neb 3 ML IH SCH ×3 (11:14→21:24)
[2021-10-15 11:17] LABS: Triiodothyronine (T3) Free 2.53 pg/mL (2.50-3.90)
[2021-10-15] MEDS: levoFLOXacin 500 MG TABLET PO SCH (17:40)
[2021-10-15] MEDS: MIRAPEX PO SCH (20:01)
[2021-10-15] MEDS ORDERED: Fluticasone Propionate Nasal 50 MCG/SPRAY BOTTLE NS PRN (20:59)
[2021-10-15] MEDS: Torsemide 20 MG TABLET PO SCH (21:28)
[2021-10-15] MEDS: Pregabalin 75 MG CAPSULE PO SCH (21:28)
[2021-10-16 02:16] LABS: Hemoglobin 11.4 g/dL (11.5-15.4); Immature Granulocytes % 0.3 % (0-4); Lymphocytes # 0.5 K/mcL (0.6-4.6); Lymphocytes % 15.7 %; Mean Corpuscular HGB Conc 33.5 g/dL (31.6-35.5); Mean Corpuscular Hemoglobin 31.8 pg (28.0-33.3); Mean Corpuscular Volume 94.7 fL (83.0-100.0); Mean Platelet Volume 12.3 fL (9.4-12.4); Monocytes # 0.3 K/mcL (0.0-1.3); Monocytes % 9.8 %; Neutrophils # 2.5 K/mcL (1.6-8.9); Platelet Count 171 K/mcL (140-400); Red Blood Count 3.59 M/mcL (3.82-4.97); Red Cell Distribution Width 14.1 % (11.5-14.5); Segmented Neutrophils % 74.2 %; White Blood Count 3.4 K/mcL (4.3-11.1)
[2021-10-16 02:39] LABS: Calcium 9.9 mg/dL (8.6-10.3); Potassium 3.4 mEq/L (3.5-5.1)
[2021-10-16] MEDS: Ipratropium/Albuterol Neb 3 ML IH SCH ×4 (04:12→21:24)
[2021-10-16] MEDS: *HR* Heparin 5,000 UNIT/ML VIAL SQ SCH ×3 (06:04→20:49)
[2021-10-16] MEDS: predniSONE 20 MG TABLET PO SCH (07:44)
[2021-10-16] MEDS: levoFLOXacin 500 MG TABLET PO SCH (07:44)
[2021-10-16] MEDS: FLUoxetine 20 MG CAPSULE PO SCH (07:44)
[2021-10-16] MEDS: Magnesium Oxide 400 MG TABLET PO SCH (07:45)
[2021-10-16] MEDS: cefTRIAXone 2,000 MG in 0.9 % Sodium Chloride 20 ML IVP SCH (07:45)
[2021-10-16] MEDS: Torsemide 20 MG TABLET PO SCH ×2 (07:45→20:49)
[2021-10-16] MEDS: Lactobacillus 1 EACH CAP.SPRINK PO SCH ×2 (07:45→20:49)
[2021-10-16] MEDS: allopurinoL 100 MG TABLET PO SCH (07:45)
[2021-10-16] MEDS: Aspirin Enteric Coated 81 MG Tablet PO SCH (07:45)
[2021-10-16] MEDS: Cholecalciferol (D-3) 1,000 UNIT (25MCG) TABLET PO SCH (07:45)
[2021-10-16] MEDS: Pregabalin 75 MG CAPSULE PO SCH ×2 (07:45→20:49)
[2021-10-16] MEDS: Cyanocobalamin (B-12) 1,000 MCG TABLET PO SCH (07:45)
[2021-10-16] MEDS: Insulin LISPRO 300 UNITS/3 ML VIAL SUBQ SCH ×4 (07:46→20:48)
[2021-10-16] MEDS ORDERED: LACTOBACILLUS ACIDOPHILUS PO SCH (09:00)
[2021-10-16] MEDS ORDERED: NON-FORMULARY MEDICATION 1 EACH EACH (Lactulose [Enulose] 10 GM/15 ML Solution) PO SCH (09:00)
[2021-10-16] MEDS: *HR* Acetylcysteine 20% 600 MG/3 ML ORAL SYRINGE PO SCH (10:15)
[2021-10-16] MEDS: Budesonide/Formoterol 160/4.5 1 PUFF INH IH SCH ×2 (10:25→21:23)
[2021-10-16] MEDS: Insulin DETEMIR 100 UNIT/ML X5UNITS SUBQ SCH ×2 (12:20→20:47)
[2021-10-16] MEDS: MIRAPEX PO SCH ×2 (17:58→17:59)
[2021-10-17] MEDS: Ipratropium/Albuterol Neb 3 ML IH SCH ×4 (04:02→20:31)
[2021-10-17] MEDS: *HR* Heparin 5,000 UNIT/ML VIAL SQ SCH ×3 (06:00→21:35)
[2021-10-17 07:58] LABS: Basophils % 0.3 %; Eosinophils % 0.3 %; Hematocrit 33.1 % (35.3-44.9); Immature Granulocytes % 0.3 % (0-4); Lymphocytes # 1.3 K/mcL (0.6-4.6); Lymphocytes % 22.1 %; Mean Corpuscular HGB Conc 33.2 g/dL (31.6-35.5); Mean Corpuscular Hemoglobin 31.9 pg (28.0-33.3); Mean Corpuscular Volume 95.9 fL (83.0-100.0); Monocytes # 0.6 K/mcL (0.0-1.3); Monocytes % 10.4 %; Neutrophils # 3.9 K/mcL (1.6-8.9); Platelet Count 189 K/mcL (140-400); Red Blood Count 3.45 M/mcL (3.82-4.97); Red Cell Distribution Width 14.4 % (11.5-14.5); Segmented Neutrophils % 66.6 %
[2021-10-17 07:59] LABS: White Blood Count 5.8 K/mcL (4.3-11.1)
[2021-10-17 08:09] LABS: Calcium 10.4 mg/dL (8.6-10.3)
[2021-10-17] MEDS: Insulin LISPRO 300 UNITS/3 ML VIAL SUBQ SCH ×4 (08:33→21:36)
[2021-10-17] MEDS: Lactobacillus 1 EACH CAP.SPRINK PO SCH ×2 (09:29→21:35)
[2021-10-17] MEDS: FLUoxetine 20 MG CAPSULE PO SCH (09:29)
[2021-10-17] MEDS: Aspirin Enteric Coated 81 MG Tablet PO SCH (09:29)
[2021-10-17] MEDS: Torsemide 20 MG TABLET PO SCH ×2 (09:29→21:35)
[2021-10-17] MEDS: Magnesium Oxide 400 MG TABLET PO SCH (09:29)
[2021-10-17] MEDS: Cyanocobalamin (B-12) 1,000 MCG TABLET PO SCH (09:30)
[2021-10-17] MEDS: cefTRIAXone 2,000 MG in 0.9 % Sodium Chloride 20 ML IVP SCH (09:30)
[2021-10-17] MEDS: Pregabalin 75 MG CAPSULE PO SCH ×2 (09:30→21:35)
[2021-10-17] MEDS: allopurinoL 100 MG TABLET PO SCH (09:30)
[2021-10-17] MEDS: levoFLOXacin 500 MG TABLET PO SCH (09:30)
[2021-10-17] MEDS: Cholecalciferol (D-3) 1,000 UNIT (25MCG) TABLET PO SCH (09:30)
[2021-10-17] MEDS: Budesonide/Formoterol 160/4.5 1 PUFF INH IH SCH ×2 (09:44→20:31)
[2021-10-17] MEDS: *HR* Acetylcysteine 20% 600 MG/3 ML ORAL SYRINGE PO SCH (09:59)
[2021-10-17] MEDS: Insulin DETEMIR 100 UNIT/ML X5UNITS SUBQ SCH ×2 (09:59→21:36)
[2021-10-17] MEDS: MIRAPEX PO SCH (16:30)
[2021-10-18] MEDS: Ipratropium/Albuterol Neb 3 ML IH SCH ×4 (04:06→20:28)
[2021-10-18 04:22] LABS: Basophils % 0.8 %; Eosinophils # 0.1 K/mcL (0.0-0.6); Eosinophils % 2.2 %; Hemoglobin 11.5 g/dL (11.5-15.4); Immature Granulocytes % 0.2 % (0-4); Lymphocytes # 1.7 K/mcL (0.6-4.6); Lymphocytes % 34.1 %; Mean Corpuscular HGB Conc 32.9 g/dL (31.6-35.5); Mean Corpuscular Volume 97.5 fL (83.0-100.0); Mean Platelet Volume 12.7 fL (9.4-12.4); Monocytes # 0.6 K/mcL (0.0-1.3); Monocytes % 12.9 %; Neutrophils # 2.5 K/mcL (1.6-8.9); Platelet Count 183 K/mcL (140-400); Red Blood Count 3.59 M/mcL (3.82-4.97); Red Cell Distribution Width 14.5 % (11.5-14.5); Segmented Neutrophils % 49.8 %
[2021-10-18 04:39] LABS: Albumin 3.9 g/dL (3.5-5.7); Bilirubin,Total 0.5 mg/dL (0.3-1.0); Calcium 10.4 mg/dL (8.6-10.3); Potassium 4.8 mEq/L (3.5-5.1); Total Protein 7.9 g/dL (6.4-8.9)
[2021-10-18] MEDS: *HR* Heparin 5,000 UNIT/ML VIAL SQ SCH ×3 (04:58→21:17)
[2021-10-18] MEDS: cefTRIAXone 2,000 MG in 0.9 % Sodium Chloride 20 ML IVP SCH (08:06)
[2021-10-18] MEDS: *HR* Acetylcysteine 20% 600 MG/3 ML ORAL SYRINGE PO SCH (08:06)
[2021-10-18] MEDS: Cholecalciferol (D-3) 1,000 UNIT (25MCG) TABLET PO SCH (08:07)
[2021-10-18] MEDS: Lactobacillus 1 EACH CAP.SPRINK PO SCH ×2 (08:07→21:16)
[2021-10-18] MEDS: Cyanocobalamin (B-12) 1,000 MCG TABLET PO SCH (08:07)
[2021-10-18] MEDS: FLUoxetine 20 MG CAPSULE PO SCH (08:07)
[2021-10-18] MEDS: allopurinoL 100 MG TABLET PO SCH (08:07)
[2021-10-18] MEDS: Pregabalin 75 MG CAPSULE PO SCH ×2 (08:07→21:16)
[2021-10-18] MEDS: Torsemide 20 MG TABLET PO SCH ×2 (08:08→21:16)
[2021-10-18] MEDS: Magnesium Oxide 400 MG TABLET PO SCH (08:08)
[2021-10-18] MEDS: Aspirin Enteric Coated 81 MG Tablet PO SCH (08:08)
[2021-10-18] MEDS: Insulin LISPRO 300 UNITS/3 ML VIAL SUBQ SCH ×4 (08:09→21:17)
[2021-10-18] MEDS: Insulin DETEMIR 100 UNIT/ML X5UNITS SUBQ SCH ×2 (08:09→21:17)
[2021-10-18] MEDS: Budesonide/Formoterol 160/4.5 1 PUFF INH IH SCH ×2 (09:14→20:28)
[2021-10-18] MEDS: Acetaminophen 325 MG TABLET PO PRN (10:11)
[2021-10-18] MEDS: MIRAPEX PO SCH (16:54)
[2021-10-19] MEDS: Ipratropium/Albuterol Neb 3 ML IH SCH ×4 (03:54→22:55)
[2021-10-19 04:12] LABS: Calcium 10.5 mg/dL (8.6-10.3)
[2021-10-19] MEDS: *HR* Heparin 5,000 UNIT/ML VIAL SQ SCH ×3 (04:58→20:11)
[2021-10-19] MEDS: *HR* Acetylcysteine 20% 600 MG/3 ML ORAL SYRINGE PO SCH (08:17)
[2021-10-19] MEDS: cefTRIAXone 2,000 MG in 0.9 % Sodium Chloride 20 ML IVP SCH (08:18)
[2021-10-19] MEDS: Insulin LISPRO 300 UNITS/3 ML VIAL SUBQ SCH ×4 (08:18→20:08)
[2021-10-19] MEDS: Pregabalin 75 MG CAPSULE PO SCH ×2 (08:19→20:01)
[2021-10-19] MEDS: Cyanocobalamin (B-12) 1,000 MCG TABLET PO SCH (08:19)
[2021-10-19] MEDS: FLUoxetine 20 MG CAPSULE PO SCH (08:19)
[2021-10-19] MEDS: Cholecalciferol (D-3) 1,000 UNIT (25MCG) TABLET PO SCH (08:19)
[2021-10-19] MEDS: Aspirin Enteric Coated 81 MG Tablet PO SCH (08:19)
[2021-10-19] MEDS: Torsemide 20 MG TABLET PO SCH ×2 (08:19→18:23)
[2021-10-19] MEDS: Lactobacillus 1 EACH CAP.SPRINK PO SCH ×2 (08:19→20:00)
[2021-10-19] MEDS: allopurinoL 100 MG TABLET PO SCH (08:19)
[2021-10-19] MEDS: Magnesium Oxide 400 MG TABLET PO SCH (08:20)
[2021-10-19] MEDS: Insulin DETEMIR 100 UNIT/ML X5UNITS SUBQ SCH ×2 (08:20→20:06)
[2021-10-19] MEDS: Budesonide/Formoterol 160/4.5 1 PUFF INH IH SCH ×2 (10:30→22:55)
[2021-10-19] MEDS: Acetaminophen 325 MG TABLET PO PRN (12:06)
[2021-10-19] MEDS: MIRAPEX PO SCH (18:06)
[2021-10-20 02:54] LABS: Calcium 9.9 mg/dL (8.6-10.3); Potassium 4.5 mEq/L (3.5-5.1)
[2021-10-20] MEDS: Ipratropium/Albuterol Neb 3 ML IH SCH ×4 (03:14→20:40)
[2021-10-20] MEDS: *HR* Heparin 5,000 UNIT/ML VIAL SQ SCH ×3 (06:04→19:57)
[2021-10-20] MEDS: *HR* Acetylcysteine 20% 600 MG/3 ML ORAL SYRINGE PO SCH (08:28)
[2021-10-20] MEDS: Insulin LISPRO 300 UNITS/3 ML VIAL SUBQ SCH ×4 (08:30→19:56)
[2021-10-20] MEDS: FLUoxetine 20 MG CAPSULE PO SCH (08:30)
[2021-10-20] MEDS: cefTRIAXone 2,000 MG in 0.9 % Sodium Chloride 20 ML IVP SCH (08:31)
[2021-10-20] MEDS: Cyanocobalamin (B-12) 1,000 MCG TABLET PO SCH (08:31)
[2021-10-20] MEDS: Magnesium Oxide 400 MG TABLET PO SCH (08:31)
[2021-10-20] MEDS: Aspirin Enteric Coated 81 MG Tablet PO SCH (08:31)
[2021-10-20] MEDS: Cholecalciferol (D-3) 1,000 UNIT (25MCG) TABLET PO SCH (08:31)
[2021-10-20] MEDS: Torsemide 20 MG TABLET PO SCH ×2 (08:31→19:59)
[2021-10-20] MEDS: allopurinoL 100 MG TABLET PO SCH (08:31)
[2021-10-20] MEDS: Lactobacillus 1 EACH CAP.SPRINK PO SCH ×2 (08:31→19:59)
[2021-10-20] MEDS: Pregabalin 75 MG CAPSULE PO SCH ×2 (08:31→19:59)
[2021-10-20] MEDS: Insulin DETEMIR 100 UNIT/ML X5UNITS SUBQ SCH ×2 (08:36→19:56)
[2021-10-20] MEDS: Budesonide/Formoterol 160/4.5 1 PUFF INH IH SCH ×2 (10:09→20:42)
[2021-10-20] MEDS: MIRAPEX PO SCH (17:01)
[2021-10-20] MEDS ORDERED: *HR* HYDROcodone/Acet 5/325 mg TABLET PO ONE (20:11)
[2021-10-21] MEDS: Ipratropium/Albuterol Neb 3 ML IH SCH ×3 (03:59→15:54)
[2021-10-21] MEDS: *HR* Heparin 5,000 UNIT/ML VIAL SQ SCH ×2 (05:00→13:12)
[2021-10-21 06:05] LABS: Calcium 9.8 mg/dL (8.6-10.3); Potassium 4.2 mEq/L (3.5-5.1)
[2021-10-21] MEDS: Insulin LISPRO 300 UNITS/3 ML VIAL SUBQ SCH ×3 (07:20→15:59)
[2021-10-21] MEDS: Aspirin Enteric Coated 81 MG Tablet PO SCH (07:57)
[2021-10-21] MEDS: cefTRIAXone 2,000 MG in 0.9 % Sodium Chloride 20 ML IVP SCH (07:57)
[2021-10-21] MEDS: Torsemide 20 MG TABLET PO SCH (07:58)
[2021-10-21] MEDS: Cholecalciferol (D-3) 1,000 UNIT (25MCG) TABLET PO SCH (07:58)
[2021-10-21] MEDS: allopurinoL 100 MG TABLET PO SCH (07:58)
[2021-10-21] MEDS: FLUoxetine 20 MG CAPSULE PO SCH (07:58)
[2021-10-21] MEDS: Magnesium Oxide 400 MG TABLET PO SCH (07:58)
[2021-10-21] MEDS: Lactobacillus 1 EACH CAP.SPRINK PO SCH (07:58)
[2021-10-21] MEDS: Cyanocobalamin (B-12) 1,000 MCG TABLET PO SCH (07:59)
[2021-10-21] MEDS: Pregabalin 75 MG CAPSULE PO SCH (07:59)
[2021-10-21] MEDS: Insulin DETEMIR 100 UNIT/ML X5UNITS SUBQ SCH (07:59)
[2021-10-21] MEDS ORDERED: Spironolactone 12.5 MG TABLET PO SCH (09:00)
[2021-10-21] MEDS: Budesonide/Formoterol 160/4.5 1 PUFF INH IH SCH (10:32)
[2021-10-21] MEDS: *HR* Acetylcysteine 20% 600 MG/3 ML ORAL SYRINGE PO SCH (10:59)
[2021-10-21 11:28] VITALS: BP 115/75; PULSE 77; TEMP 98.2; O2SAT 100
[2021-10-21 13:41] LABS: Adenovirus Not Detected (Not Detect); Bordetella Pertussis Not Detected (Not Detect); Chlamydophila pneumoniae Not Detected (Not Detect); Coronavirus 229E Not Detected (Not Detect); Coronavirus HKU1 Not Detected (Not Detect); Coronavirus NL63 Not Detected (Not Detect); Coronavirus OC43 Not Detected (Not Detect); Human Metapneumovirus Not Detected (Not Detect); Human Rhinovirus/Enterovirus Not Detected (Not Detect); Influenza A Subtype 2009 H1 Not Detected (Not Detect); Influenza B Not Detected (Not Detect); Mycoplasma pneumoniae Not Detected (Not Detect); Parainfluenza Virus 1 Not Detected (Not Detect); Parainfluenza Virus 2 Not Detected (Not Detect); Parainfluenza Virus 3 Not Detected (Not Detect); Parainfluenza Virus 4 Not Detected (Not Detect); Respiratory Syncytial Virus Not Detected (Not Detect); SARS-CoV-2 Not Detected (Not Detect)
== END 2021-10-21 17:59 | disposition other institution (70) | DRG 871 ==
LOC: 2ANU → SUATTDRO 10-15 00:18
PROVIDERS: ADMIT Internal Medicine; ATTEND Hospitalist

== ENCOUNTER 2022-04-07 15:26 | Inpatient (IN) ==
[2022-04-07] MEDS ORDERED: Piperacillin/Tazobactam 3.375 GM in 0.9 % Sodium Chloride Mini Bag 100 ML IVPB ONE (20:00)
[2022-04-07 20:44] LABS: Basophils % 0.7 %; Eosinophils # 0.2 K/mcL (0.0-0.6); Eosinophils % 3.2 %; Hemoglobin 13.2 g/dL (11.5-15.4); Immature Granulocytes % 0.2 % (0-4); Lymphocytes # 1.5 K/mcL (0.6-4.6); Lymphocytes % 25.7 %; Mean Corpuscular Hemoglobin 32.3 pg (28.0-33.3); Mean Corpuscular Volume 97.8 fL (83.0-100.0); Mean Platelet Volume 11.9 fL (9.4-12.4); Monocytes # 0.6 K/mcL (0.0-1.3); Monocytes % 11.3 %; Neutrophils # 3.3 K/mcL (1.6-8.9); Platelet Count 236 K/mcL (140-400); Red Blood Count 4.09 M/mcL (3.82-4.97); Red Cell Distribution Width 13.8 % (11.5-14.5); Segmented Neutrophils % 58.9 %; White Blood Count 5.6 K/mcL (4.3-11.1)
[2022-04-07 21:45] LABS: Calcium 10.3 mg/dL (8.6-10.3)
[2022-04-07] MEDS ORDERED: Naloxone 0.4 MG/ML INJ IVP PRN (22:27)
[2022-04-07] MEDS ORDERED: Ondansetron 4 MG/2 ML VIAL IVP PRN (22:27)
[2022-04-07] MEDS ORDERED: *HR* Dextrose 50 % in Water (Syg) 50 ML SYRINGE IVP PRN (22:32)
[2022-04-07] MEDS ORDERED: D5% in Water 1,000 ML IVC PRN (22:32)
[2022-04-07] MEDS ORDERED: Dextrose Gel 15 GM/37.5 ML TUBE PO PRN ×2 (22:32)
[2022-04-07] MEDS ORDERED: Vancomycin 2,000 MG/520 ML IV.SOLN IVPB ONE (23:00)
[2022-04-07 23:56] LABS: Estimated Average Glucose 154 mg/dl
[2022-04-08] MEDS: Insulin LISPRO 300 UNITS/3 ML VIAL SUBQ SCH ×4 (01:30→17:20)
[2022-04-08] MEDS: Pregabalin 75 MG CAPSULE PO SCH ×3 (02:58→21:47)
[2022-04-08] MEDS: Melatonin 3 MG TABLET PO PRN ×2 (02:58→21:56)
[2022-04-08] MEDS: Nystatin POWDER 30 GM BOTTLE TP SCH ×3 (03:05→21:47)
[2022-04-08 04:56] LABS: Hematocrit 35.8 % (35.3-44.9); Hemoglobin 11.8 g/dL (11.5-15.4); Mean Corpuscular Hemoglobin 31.9 pg (28.0-33.3); Mean Corpuscular Volume 96.8 fL (83.0-100.0); Platelet Count 227 K/mcL (140-400); Red Cell Distribution Width 13.7 % (11.5-14.5); White Blood Count 5.5 K/mcL (4.3-11.1)
[2022-04-08 05:19] LABS: Calcium 10.1 mg/dL (8.6-10.3); Potassium 3.7 mEq/L (3.5-5.1)
[2022-04-08] MEDS ORDERED: 0.9 % Sodium Chloride 1,000 ML IVC SCH (08:15)
[2022-04-08] MEDS ORDERED: Ipratropium/Albuterol Neb 3 ML IH PRN (11:45)
[2022-04-08] MEDS: Piperacillin/Tazobactam 3.375 GM in 0.9 % Sodium Chloride Mini Bag 100 ML IVPB SCH ×2 (11:55→23:49)
[2022-04-08] MEDS ORDERED: Vancomycin 2,000 MG/520 ML IV.SOLN IVPB ONE (13:00)
[2022-04-08] MEDS ORDERED: GuaiFENesin/Dextromethorphan TABLET PO PRN (15:07)
[2022-04-08] MEDS: *HR* Heparin 5,000 UNIT/ML VIAL SQ SCH (17:19)
[2022-04-08] MEDS: Pantoprazole 40 MG VIAL IVP SCH (22:26)
[2022-04-09] MEDS: *HR* Heparin 5,000 UNIT/ML VIAL SQ SCH ×2 (00:38→17:34)
[2022-04-09] MEDS: Insulin LISPRO 300 UNITS/3 ML VIAL SUBQ SCH ×3 (07:37→17:33)
[2022-04-09] MEDS: Pregabalin 75 MG CAPSULE PO SCH ×2 (07:59→19:33)
[2022-04-09] MEDS: Piperacillin/Tazobactam 3.375 GM in 0.9 % Sodium Chloride Mini Bag 100 ML IVPB SCH ×2 (07:59→16:02)
[2022-04-09] MEDS: Nystatin POWDER 30 GM BOTTLE TP SCH ×2 (08:03→19:33)
[2022-04-09] MEDS ORDERED: *HR* HYDROcodone/Acet 7.5/325 mg TABLET PO PRN (10:01)
[2022-04-09] MEDS ORDERED: Fluticasone Propionate Nasal 50 MCG/SPRAY BOTTLE NS PRN (10:01)
[2022-04-09 10:27] LABS: Calcium 9.7 mg/dL (8.6-10.3); Magnesium 2.1 mg/dL (1.6-2.6); Phosphorous 3.4 mg/dL (2.7-4.5); Potassium 3.7 mEq/L (3.5-5.1)
[2022-04-09] MEDS: Pantoprazole 40 MG VIAL IVP SCH ×2 (10:49→20:02)
[2022-04-09] MEDS: Aspirin Enteric Coated 81 MG Tablet PO SCH (10:49)
[2022-04-09] MEDS: allopurinoL 100 MG TABLET PO SCH (10:50)
[2022-04-09] MEDS: FLUoxetine 20 MG CAPSULE PO SCH (10:50)
[2022-04-09] MEDS: Cholecalciferol (D-3) 1,000 UNIT (25MCG) TABLET PO SCH (10:50)
[2022-04-09] MEDS: Cyanocobalamin (B-12) 1,000 MCG TABLET PO SCH (10:50)
[2022-04-09] MEDS ORDERED: Famotidine 20 MG/2 ML VIAL IVP ONE (13:00)
[2022-04-09] MEDS ORDERED: Acetaminophen IV 1,000 MG/100 ML BAG IVPB ONE (13:00)
[2022-04-09] MEDS ORDERED: 0.9 % Sodium Chloride 1,000 ML IVC SCH (14:00)
[2022-04-09] MEDS ORDERED: Ondansetron 4 MG/2 ML VIAL ONE (14:07)
[2022-04-09] MEDS ORDERED: Lidocaine -MPF 2% 2 ML VIAL ONE (14:07)
[2022-04-09] MEDS ORDERED: *HR* FentaNYL (PF) 100 MCG/2 ML VIAL ONE (14:07)
[2022-04-09] MEDS: Melatonin 3 MG TABLET PO PRN (22:41)
[2022-04-10] MEDS: Piperacillin/Tazobactam 3.375 GM in 0.9 % Sodium Chloride Mini Bag 100 ML IVPB SCH ×2 (00:22→07:45)
[2022-04-10 02:53] LABS: Basophils % 1.2 %; Eosinophils # 0.2 K/mcL (0.0-0.6); Eosinophils % 6.4 %; Hematocrit 36.3 % (35.3-44.9); Hemoglobin 11.6 g/dL (11.5-15.4); Immature Granulocytes % 0.3 % (0-4); Lymphocytes % 28.2 %; Mean Corpuscular Hemoglobin 31.8 pg (28.0-33.3); Mean Corpuscular Volume 99.5 fL (83.0-100.0); Mean Platelet Volume 11.8 fL (9.4-12.4); Monocytes # 0.4 K/mcL (0.0-1.3); Monocytes % 12.2 %; Neutrophils # 1.8 K/mcL (1.6-8.9); Platelet Count 209 K/mcL (140-400); Red Blood Count 3.65 M/mcL (3.82-4.97); Red Cell Distribution Width 13.7 % (11.5-14.5); Segmented Neutrophils % 51.7 %; White Blood Count 3.4 K/mcL (4.3-11.1)
[2022-04-10 03:05] LABS: Calcium 9.5 mg/dL (8.6-10.3); Magnesium 2.1 mg/dL (1.6-2.6); Phosphorous 3.5 mg/dL (2.7-4.5); Potassium 4.3 mEq/L (3.5-5.1)
[2022-04-10] MEDS: *HR* Heparin 5,000 UNIT/ML VIAL SQ SCH (05:48)
[2022-04-10] MEDS: FLUoxetine 20 MG CAPSULE PO SCH (07:32)
[2022-04-10] MEDS: allopurinoL 100 MG TABLET PO SCH (07:33)
[2022-04-10] MEDS: Pregabalin 75 MG CAPSULE PO SCH (07:33)
[2022-04-10] MEDS: Cyanocobalamin (B-12) 1,000 MCG TABLET PO SCH (07:34)
[2022-04-10] MEDS: Cholecalciferol (D-3) 1,000 UNIT (25MCG) TABLET PO SCH (07:35)
[2022-04-10] MEDS: Aspirin Enteric Coated 81 MG Tablet PO SCH (07:36)
[2022-04-10] MEDS: Nystatin POWDER 30 GM BOTTLE TP SCH (07:46)
[2022-04-10] MEDS: Insulin LISPRO 300 UNITS/3 ML VIAL SUBQ SCH ×2 (09:08→12:39)
[2022-04-10] MEDS ORDERED: *HR* OxyCODONE Immed Rel 5 MG TABLET PO PRN (10:00)
[2022-04-10] MEDS ORDERED: *HR* HYDROcodone/Acet 7.5/325 mg TABLET PO PRN (10:00)
[2022-04-10] MEDS ORDERED: metOLazone 2.5 MG TABLET PO PRN (10:30)
[2022-04-10 10:37] VITALS: BP 130/71; PULSE 68; TEMP 97.8; O2SAT 97
[2022-04-10] MEDS: Pantoprazole 40 MG VIAL IVP SCH (10:46)
[2022-04-10 15:43] LABS: Influenza A PCR Negative (Negative); Influenza B PCR Negative (Negative); Resp. Syncytial Virus PCR Negative (Negative)
[2022-04-10 15:44] LABS: SARS-CoV-2 by PCR (In House) Negative (Negative)
[2022-04-10] MEDS ORDERED: Torsemide 20 MG TABLET PO SCH (17:00)
== END 2022-04-10 16:34 | DRG 617 ==
LOC: 3BNU 15:26 → EMEROOARM 15:26 → SUATTDRO 23:28 → 3BNU 04-08 00:04
PROVIDERS: ADMIT Internal Medicine; ATTEND Internal Medicine